=== PATIENT | female | born 1955 | race African-American/Black ===

== ENCOUNTER 2017-02-26 08:57 | Inpatient (IN) | payer MEDICAID ==
[2017-02-26] VITALS (7 sets, daily range): BP systolic 117–179; BP diastolic 62–81; PULSE 68–81; RESP 15–25; TEMP 98–99; O2SAT 96–100
[~2017-02-26] VITALS: Ht 167.6 cm; Wt 56.9 kg
[~2017-02-26 08:57] MED LIST: CALA180T PO; CEPH250 PO; CLOP75 PO; GABA300C3 PO; LISI-366 PO; SUPETAB30 PO; ULTR50TA PO; [UNRECOGNIZED DRUG - CODE] PO
--- NOTE | 2017-02-26 09:36 | PD ---
HPI Chief Complaint: Bite or Sting Time Seen by Provider: 09:27 Travel History International Travel<30 days: No Contact w/Intl Traveler<30days: No Traveled to known affect area: No History of Present Illness HPI 61-year-old female presents to the emergency department with 2 complaints. First complaint is left forearm "spider bite" 3 days. Reports pain radiating up and down her arm. Denies paresthesias, loss of sensation, decreased range of motion to the affected extremity. Says it's hard to move her arm. Second complaint is left-sided chest pain that has been constant since yesterday. Has history of chest pain. Says she's had a stress test in the past and has been over a year. Denies shortness of breath. Denies fever, vomiting. Is not up-to -date on her tetanus vaccination. Denies illicit drug use; although she admits to history of cocaine use. She says she did smoke a "blunt "last night to relieve her pain but doesn't know what was in it. Reports EtOH use daily. Reports tobacco use. Rates pain 8/10. Describes it as an ache. He is taking gabapentin for symptom management. Denies family history of cardiac events. No known allergies. Primary care provider is Dr. Lozoya. Has history of HIV and hepatitis C. Dr. Barry is HIV doctor. History of hypertension. Has no other medical complaints. No modifying factors or associated signs and symptoms. PFSH Past Medical History Anemia: Yes Arthritis: Yes Asthma: No Autoimmune Disease: Yes (HIV ) Blood Disorders: Yes (ANEMIA/HEP C/) Anxiety: Yes Depression: Yes Heart Rhythm Problems: Yes Cancer: No Cardiovascular Problems: Yes (HIGH BP) High Cholesterol: No Chemotherapy: No Chest Pain: Yes Congestive Heart Failure: No Cirrhosis: Yes COPD: No Cerebrovascular Accident: No Coronary Artery Disease: Yes Diabetes: No Diminished Hearing: No Endocrine: No Gastrointestinal Disorders: Yes (GERD) GERD: Yes Glaucoma: No Genitourinary: No Headaches: No Hepatitis: Yes (HEP C) Hiatal Hernia: No Hypertension: Yes Immune Disorder: No Kidney Stones: No Medical other: Yes (HIV POS.) Musculoskeletal: Yes (ARTHRITIS, FAILED RIGHT HIP REPL.) Neurologic: Yes (HEADACHES) Psychiatric: No Reproductive: No Respiratory: No Immunizations Current: Yes Migraines: No Myocardial Infarction: No Radiation Therapy: No Renal Failure: No Seizures: No Sickle Cell Disease: No Sleep Apnea: No Thyroid Disease: No Ulcer: No ?: Not Menopausal: Yes Para: 2 Dilation and Curettage (D&C): Yes Tubal Ligation: Yes Past Surgical History Abdominal Surgery: Yes (LAP. MARCELINO) AICD: No Appendectomy: No Arteriovenous Shunt: No Cardiac Surgery: No Cholecystectomy: Yes Ear Surgery: No Endocrine Surgery: No Eye Surgery: No Genitourinary Surgery: No Gynecologic Surgery: Yes (TUBAL LIGATION) Insulin Pump: No Joint Replacement: Yes (KRISTOFER. HIPS) Oral Surgery: Yes (DENTAL EXTRACT.) Pacemaker: No Thoracic Surgery: No Other Surgery: Yes Social History Alcohol Use: Yes Tobacco Use: Yes Substance Use: Yes (CRACK COCAINE ABUSE ) Allergies-Medications (Allergen,Severity, Reaction): Coded Allergies: *MDRO Multi-Drug Resistant Organism (Verified Allergy, Unknown, 02/26/17) MRSA Reported Meds & Prescriptions Reported Meds & Active Scripts Active Reported [Trimea] 1 Tab PO DAILY Gabapentin 600 Mg Tab 600 Mg PO TID Lisinopril 40 Mg Tab 40 Mg PO DAILY Multiple Vitamin 1 Tab 1 Tab PO DAILY Verapamil ER (Verapamil HCl) 180 Mg Tab 180 Mg PO DAILY Review of Systems Except as stated in HPI: all other systems reviewed are Neg Physical Exam Narrative GENERAL: Thin, black female patient, in no acute distress; afebrile, nontoxic- appearing SKIN: There is an indurated area in the left forearm which measures about 2 cm in diameter. It is fluctuant but there is pointing, but no drainage. There is a zone of inflammation around it but no lymphangitis. Left forearm erythematous and edematous. Left arm with full range of motion at the elbow, shoulder, wrist , hand. Left upper extremity is supple and non-tense 2+ radial pulses sensory intact. HEAD: Atraumatic. Normocephalic. EYES: Pupils equal and round. No scleral icterus. No injection or drainage. ENT: Mucosa pink and moist. NECK: Trachea midline. CHEST: Reproducible chest wall tenderness on palpation to sternal and left chest area; no crepitance or deformity. No retractions or use of accessory muscles. CARDIOVASCULAR: Regular rate and rhythm. No murmur appreciated. RESPIRATORY: No accessory muscle use. Clear to auscultation. Breath sounds equal bilaterally. No retractions or tachypnea. GASTROINTESTINAL: Abdomen soft, non-tender, nondistended. Hepatic and splenic margins not palpable. Bowel sounds are active 4 quadrants. MUSCULOSKELETAL: No obvious deformities. No clubbing. No cyanosis. No edema. NEUROLOGICAL: Awake and alert. Oriented 3. No obvious cranial nerve deficits. Motor grossly within normal limits. Normal speech. Moves all extremities. 5/5 strength to all extremities. PSYCHIATRIC: Appropriate mood and affect; insight and judgment normal. Data Data Last Documented VS Vital Signs Date Time Temp Pulse Resp B/P (MAP) Pulse Ox O2 Delivery O2 Flow Rate FiO2 02/26/17 09:46 99 Room Air 02/26/17 09:46 2.00 02/26/17 09:40 73 15 02/26/17 08:59 99.0 Orders Orders Electrocardiogram (02/26/17 09:36) Basic Metabolic Panel (Bmp) (02/26/17 09:36) Ckmb (Isoenzyme) Profile (02/26/17 09:36) Complete Blood Count With Diff (02/26/17 09:36) Magnesium (Mg) (02/26/17 09:36) Prothrombin Time / Inr (Pt) (02/26/17 09:36) Act Partial Throm Time (Ptt) (02/26/17 09:36) Troponin I (02/26/17 09:36) Chest, Single Ap (02/26/17 09:36) Ecg Monitoring (02/26/17 09:36) Iv Access Insert/Monitor (02/26/17 09:36) Oximetry (02/26/17 09:36) Oxygen Administration (02/26/17 09:36) Sodium Chloride 0.9% Flush (Ns Flush) (02/26/17 09:45) Blood Culture (02/26/17 09:36) Lactic Acid (02/26/17 09:36) Tetanus/Diphtheria Tox Adult (Tetanus/Di (02/26/17 09:45) Lidocaine 1% Inj (50 Ml) (Xylocaine 1% I (02/26/17 09:45) Drug Screen, Random Urine (02/26/17 09:45) Lidocaine Pf 1% Inj (Xylocaine-Mpf 1% In (02/26/17 09:48) CKMB (02/26/17 09:55) CKMB% (02/26/17 09:55) Admit Order (Ed Use Only) (02/26/17 11:41) Sulfamet-Trimeth Ds 800-160 Mg (Bactrim (02/26/17 11:45) Labs Laboratory Tests Test 02/26/17 09:55 02/26/17 10:00 Prothrombin Time 10.7 SEC Prothromb Time International Ratio 1.1 RATIO Activated Partial Thromboplast Time 28.9 SEC Blood Urea Nitrogen 15 MG/DL Creatinine 0.87 MG/DL Random Glucose 92 MG/DL Calcium Level 9.2 MG/DL Magnesium Level 2.2 MG/DL Sodium Level 138 MEQ/L Potassium Level 3.5 MEQ/L Chloride Level 104 MEQ/L Carbon Dioxide Level 29.6 MEQ/L Anion Gap 4 MEQ/L Estimat Glomerular Filtration Rate 80 ML/MIN Lactic Acid Level 0.8 mmol/L Total Creatine Kinase 117 U/L Creatine Kinase MB 1.1 NG/ML Troponin I LESS THAN 0.02 NG/ML White Blood Count 12.7 TH/MM3 Red Blood Count 5.16 MIL/MM3 Hemoglobin 14.2 GM/DL Hematocrit 42.7 % Mean Corpuscular Volume 82.7 FL Mean Corpuscular Hemoglobin 27.6 PG Mean Corpuscular Hemoglobin Concent 33.4 % Red Cell Distribution Width 14.1 % Platelet Count 228 TH/MM3 Mean Platelet Volume 8.2 FL Neutrophils (%) (Auto) 68.7 % Lymphocytes (%) (Auto) 21.4 % Monocytes (%) (Auto) 9.1 % Eosinophils (%) (Auto) 0.3 % Basophils (%) (Auto) 0.5 % Neutrophils # (Auto) 8.7 TH/MM3 Lymphocytes # (Auto) 2.7 TH/MM3 Monocytes # (Auto) 1.2 TH/MM3 Eosinophils # (Auto) 0.0 TH/MM3 Basophils # (Auto) 0.1 TH/MM3 CBC Comment DIFF FINAL Differential Comment MDM Medical Decision Making Medical Screen Exam Complete: Yes Emergency Medical Condition: Yes Medical Record Reviewed: Yes Differential Diagnosis ACS, IL, chest wall pain, abscess, sepsis Narrative Course 61-year-old female with chest pain and abscess to her left forearm. History of HIV and hepatitis C. See my procedure note for incision and drainage. CBC, BMP , coags, troponin, CK-MB, lactic acid, blood cultures, wound culture ordered. 0950: EKG with normal sinus rhythm; without ST elevation or depression. 1113: CBC unremarkable. BMP unremarkable. Lactic acid 0.8. Troponin less than 0.02. Coags unremarkable. Chest x-ray unremarkable. Patient admitted to the chest pain center for further treatment and evaluation. 1230: Patient examined by Dr. Blevins and he recommends admission for treatment abscess of the left arm. Call placed to [facility] for patient admission. 1308: I spoke with Dr. Guo and report given for patient admission. Procedures Procedure Narrative INCISION AND DRAINAGE OF ABSCESS: The area was prepped and was sterilely draped. A subcutaneous wheal of 1 % Xylocaine with a total number 1 mL was used to anesthetize the area properly. A number 11 scalpel was used to make a 0.5 -cm incision across the area of the abscess. The abscess was drained, complex loculations were broken down, and irrigated with normal saline. Cultures were obtained. Sterile dressing applied. Physician Communication Physician Communication [employer]; Dr. Guo [facility] Diagnosis Primary Impression: Chest pain Qualified Codes: R07.9 - Chest pain, unspecified Additional Impressions: Abscess of left forearm Cellulitis of left arm Admitting Information Admitting Physician Requests: Observation Coleen Carpenter Feb 26, 2017 09:36
[2017-02-26] MEDS ORDERED: LISI40TA PO (09:43)
[2017-02-26] MEDS ORDERED: VERA1TAB10 PO (09:43)
[2017-02-26] MEDS ORDERED: MULTTAB67 PO (09:43)
[2017-02-26] MEDS ORDERED: GABA600T PO (09:43)
[2017-02-26] MEDS ORDERED: [UNRECOGNIZED DRUG - OTHER] PO (09:44)
[2017-02-26] MEDS ORDERED: TETANUS/DIPHTHERIA TOXOID ADULT 0.5 ML VIAL IM ONE (09:45)
[2017-02-26] MEDS ORDERED: LIDOCAINE HCL 1% 50 ML VIAL INFIL ONE (09:45)
[2017-02-26] MEDS ORDERED: SODIUM CHLORIDE 0.9% FLUSH 10 ML FLUSH IVF PRN (09:45)
[2017-02-26] MEDS ORDERED: LIDOCAINE HCL 1% PF 30 ML VIAL ONE (09:48)
--- NOTE | 2017-02-26 10:22 | RADRPT ---
EXAM DATE/TIME: 02/26/2017 09:48 [facility] COMPARISON: CHEST SINGLE AP, October 31, 2014, 12:59. INDICATIONS : Chest pain due to from a possible spider bite. MEDICAL HISTORY : HIV. Hepatitis C. Hypertension. MRSA. SURGICAL HISTORY : Cholecystectomy. Tubal ligation. Total hip replacement, bilat. ENCOUNTER: Initial ACUITY: 1 day PAIN SCORE: 4/10 LOCATION: Bilateral chest FINDINGS: A single view of the chest demonstrates the lungs to be symmetrically aerated without evidence of mas s, infiltrate or effusion. The cardiomediastinal contours are unremarkable. Osseous structures are intact. CONCLUSION: 1. No acute cardiopulmonary disease. Tony Claire MD on February 26, 2017 at 10:20 Board Certified Radiologist. This report was verified electronically.
[2017-02-26 10:24] LABS: AUTOMATED NEUTROPHIL # 8.7 TH/MM3 (1.8-7.7); BASOPHIL # 0.1 TH/MM3 (0-0.2); BASOPHIL % 0.5 % (0.0-2.0); EOSINOPHIL % 0.3 % (0.0-4.0); HEMATOCRIT 42.7 % (35.0-46.0); HEMO FLAGS DIFF FINAL; LYMPH % 21.4 % (9.0-44.0); LYMPHOCYTE # 2.7 TH/MM3 (1.0-4.8); MEAN CELL VOLUME 82.7 FL (80.0-100.0); MEAN CORPUSCULAR HEMOGLOBIN 27.6 PG (27.0-34.0); MEAN CORPUSCULAR HGB CONC 33.4 % (32.0-36.0); MONO % 9.1 % (0.0-8.0); NEUT % 68.7 % (16.0-70.0); PLATELET COUNT 228 TH/MM3 (150-450); RED BLOOD COUNT 5.16 MIL/MM3 (4.00-5.30); RED CELL DISTRIBUTION WIDTH 14.1 % (11.6-17.2); WHITE BLOOD COUNT 12.7 TH/MM3 (4.0-11.0)
[2017-02-26 10:34] LABS: APTT (PATIENT) 28.9 SEC (24.3-30.1); INTERNATIONAL NORMALIZED RATIO 1.1 RATIO; PROTHROMBIN TIME - PATIENT 10.7 SEC (9.8-11.6)
[2017-02-26 10:41] LABS: ANION GAP 4 MEQ/L (5-15); BICARBONATE 29.6 MEQ/L (21.0-32.0); BLOOD UREA NITROGEN 15 MG/DL (7-18); CHLORIDE 104 MEQ/L (98-107); GLOMERULAR FILTRATION RATE 80 ML/MIN (>89); MAGNESIUM 2.2 MG/DL (1.5-2.5); POTASSIUM 3.5 MEQ/L (3.5-5.1); SODIUM (NA) 138 MEQ/L (136-145)
[2017-02-26 10:45] LABS: CREATINE KINASE 117 U/L (26-192)
[2017-02-26 10:57] LABS: CKMB 1.1 NG/ML (0.5-3.6)
[2017-02-26] MEDS: SULFAMETHOXAZOLE-TRIMETHOPRIM DS 800-160 MG TAB PO SCH ×2 (11:47→21:09)
[2017-02-26] MEDS ORDERED: KETOROLAC TROMETHAMINE 30 MG/ML (IVP) VIAL IV PUSH ONE (12:00)
[2017-02-26] MEDS ORDERED: NITROGLYCERIN 0.4 MG SL 25 TABS/BTL SL PRN (12:15)
[2017-02-26] MEDS ORDERED: ONDANSETRON HCL 4 MG/2 ML VIAL IV PUSH PRN (12:15)
[2017-02-26] MEDS ORDERED: ACETAMINOPHEN 500 MG CPLT PO PRN (12:15)
--- NOTE | 2017-02-26 12:34 | PD ---
Data Data Last Documented VS Vital Signs Date Time Temp Pulse Resp B/P (MAP) Pulse Ox O2 Delivery O2 Flow Rate FiO2 02/26/17 09:46 99 Room Air 02/26/17 09:46 2.00 02/26/17 09:40 73 15 02/26/17 08:59 99.0 Orders Orders Electrocardiogram (02/26/17 09:36) Basic Metabolic Panel (Bmp) (02/26/17 09:36) Ckmb (Isoenzyme) Profile (02/26/17 09:36) Complete Blood Count With Diff (02/26/17 09:36) Magnesium (Mg) (02/26/17 09:36) Prothrombin Time / Inr (Pt) (02/26/17 09:36) Act Partial Throm Time (Ptt) (02/26/17 09:36) Troponin I (02/26/17 09:36) Chest, Single Ap (02/26/17 09:36) Ecg Monitoring (02/26/17 09:36) Iv Access Insert/Monitor (02/26/17 09:36) Oximetry (02/26/17 09:36) Oxygen Administration (02/26/17 09:36) Sodium Chloride 0.9% Flush (Ns Flush) (02/26/17 09:45) Blood Culture (02/26/17 09:36) Lactic Acid (02/26/17 09:36) Tetanus/Diphtheria Tox Adult (Tetanus/Di (02/26/17 09:45) Lidocaine 1% Inj (50 Ml) (Xylocaine 1% I (02/26/17 09:45) Drug Screen, Random Urine (02/26/17 09:45) Lidocaine Pf 1% Inj (Xylocaine-Mpf 1% In (02/26/17 09:48) CKMB (02/26/17 09:55) CKMB% (02/26/17 09:55) Admit Order (Ed Use Only) (02/26/17 11:41) Sulfamet-Trimeth Ds 800-160 Mg (Bactrim (02/26/17 11:45) Labs Laboratory Tests Test 02/26/17 09:55 02/26/17 10:00 Prothrombin Time 10.7 SEC Prothromb Time International Ratio 1.1 RATIO Activated Partial Thromboplast Time 28.9 SEC Blood Urea Nitrogen 15 MG/DL Creatinine 0.87 MG/DL Random Glucose 92 MG/DL Calcium Level 9.2 MG/DL Magnesium Level 2.2 MG/DL Sodium Level 138 MEQ/L Potassium Level 3.5 MEQ/L Chloride Level 104 MEQ/L Carbon Dioxide Level 29.6 MEQ/L Anion Gap 4 MEQ/L Estimat Glomerular Filtration Rate 80 ML/MIN Lactic Acid Level 0.8 mmol/L Total Creatine Kinase 117 U/L Creatine Kinase MB 1.1 NG/ML Troponin I LESS THAN 0.02 NG/ML White Blood Count 12.7 TH/MM3 Red Blood Count 5.16 MIL/MM3 Hemoglobin 14.2 GM/DL Hematocrit 42.7 % Mean Corpuscular Volume 82.7 FL Mean Corpuscular Hemoglobin 27.6 PG Mean Corpuscular Hemoglobin Concent 33.4 % Red Cell Distribution Width 14.1 % Platelet Count 228 TH/MM3 Mean Platelet Volume 8.2 FL Neutrophils (%) (Auto) 68.7 % Lymphocytes (%) (Auto) 21.4 % Monocytes (%) (Auto) 9.1 % Eosinophils (%) (Auto) 0.3 % Basophils (%) (Auto) 0.5 % Neutrophils # (Auto) 8.7 TH/MM3 Lymphocytes # (Auto) 2.7 TH/MM3 Monocytes # (Auto) 1.2 TH/MM3 Eosinophils # (Auto) 0.0 TH/MM3 Basophils # (Auto) 0.1 TH/MM3 CBC Comment DIFF FINAL Differential Comment MDM Supervised Visit with ELIZABETH: Yes Narrative Course I, Dr. Rutledge, have reviewed the advance practice practitioner's documentation and am in agreement, met with the patient face to face, made the diagnosis, and the medical decision making was done by me. *My assessment and Findings: Patient seen and examined by me in addition to Coleen Betsylashay RICCI, patient immunocompromise, does have some significant swelling to the left forearm, seen by cardiology who agrees patient's symptoms are highly atypical. Given the swelling of her left forearm and her immunocompromise state and think she needs to have a day or 2 of IV antibiotics in the hospital until clinically turning the corner. She is not septic at this time. IV antibiotic for given in the ER. Diagnosis Primary Impression: Chest pain Qualified Codes: R07.9 - Chest pain, unspecified Additional Impression: Abscess of left forearm Admitting Information Admitting Physician Requests: Observation Condition: Stable João Rutledge MD Feb 26, 2017 12:34
[2017-02-26] MEDS ORDERED: MORPHINE SULFATE 4 MG/ML INJ IV PUSH ONE (12:45)
[2017-02-26] MEDS ORDERED: VANCOMYCIN INJ 1,000 MG in SODIUM CHLOR 0.9% 250 ML INJ 250 ML IV ONE (12:45)
[2017-02-26] MEDS ORDERED: ACETAMINOPHEN 325 MG TAB PO PRN (13:45)
[2017-02-26] MEDS ORDERED: Vancomycin Consult Pharmacy 1 EA OTHER SCH (13:45)
[2017-02-26] MEDS ORDERED: NALOXONE HCL 0.4 MG/ML AMP IV PUSH PRN (13:45)
[2017-02-26] MEDS ORDERED: MAGNESIUM HYDROXIDE SUSP 30 ML CUP PO PRN (13:45)
[2017-02-26] MEDS ORDERED: ONDANSETRON HCL 4 MG/2 ML VIAL IVP PRN (13:45)
[2017-02-26] MEDS ORDERED: SODIUM CHLORIDE 0.9% FLUSH 10 ML FLUSH IV FLUSH PRN (13:45)
--- NOTE | 2017-02-26 13:50 | HHI.HP ---
HPI Service [facility] Primary Care Physician Luther Lozoya D.O. Admission Diagnosis chest pain. left forearm abscess Diagnoses: Chief Complaint: Left arm pain and chest pain Travel History International Travel<30 Days: No Contact w/Intl Traveler <30 Da: No Traveled to Known Affected Are: No History of Present Illness This is a 61-year-old female who has HIV unknown current CD4 count, hypertension , history of hepatitis, and cracked cocaine abuse who presented with left arm cellulitis and chest pain. Patient stated that she started to have left arm pain 4 days ago. She stated that it progressed quickly. She denies any drug use but from the medical records and stated that patient has a history of crack cocaine use. Patient stated pain was so severe so she went to emergency department. Patient also complained of chest pain that started yesterday. Chest pain occurred at rest, nonradiating, nothing made it better or worse, constant, and 10 out of 10. She denies any nausea or vomiting or diaphoresis with the chest pain. Patient denies any trauma or lifting recently. Denies any fevers or chills. Patient sees infectious disease Dr. Doran. She stated that she does not know her CD4 count. She stated that she is on medication for HIV but she could not tell me the name. I asked patient if someone can bring in the medication. All other review of system reviewed and negative. Past Family Social History Past Medical History HIV Hypertension History of hepatitis C GERD Anemia Questionable history of crack cocaine abuse Past Surgical History Tubal ligation Cholecystectomy Left toe biopsy Bilateral hip replacement Reported Medications Reported Meds & Active Scripts Active Reported [Trimea] 1 Tab PO DAILY Gabapentin 600 Mg Tab 600 Mg PO TID Lisinopril 40 Mg Tab 40 Mg PO DAILY Multiple Vitamin 1 Tab 1 Tab PO DAILY Verapamil ER (Verapamil HCl) 180 Mg Tab 180 Mg PO DAILY Allergies: Coded Allergies: *MDRO Multi-Drug Resistant Organism (Verified Allergy, Unknown, 02/26/17) MRSA Active Ordered Medications Current Medications Sodium Chloride (NS Flush) 2 ml UNSCH PRN IVF FLUSH AFTER USING IV ACCESS; Start 02/26/17 at 09:45 Tetanus/ Diphtheria Toxoids (Tetanus/ Diphtheria Tox Adult) 0.5 ml ONCE ONCE IM Last administered on 02/26/17 09:50; Start 02/26/17 at 09:45; Stop 02/26/17 at 09:46; Status DC Lidocaine HCl (Xylocaine 1% Inj (50 ml)) 10 ml ONCE ONCE INFIL ; Start at 09:45; Stop 02/26/17 at 09:46; Status DC Lidocaine HCl (Xylocaine-Mpf 1% Inj) 30 ml STK-MED ONCE .ROUTE Last administered on 02/26/17 11:49; Start 02/26/17 at 09:48; Stop 02/26/17 at 09:49 ; Status DC Trimethoprim/ Sulfamethoxazole (Bactrim Ds 800-160 Mg) 1 tab Q12HR PO Last administered on 02/26/17 11:47; Start 02/26/17 at 11:45; Stop 03/08/17 at 11: 44 Ketorolac Tromethamine (Toradol Inj) 30 mg ONCE ONCE IV PUSH Last administered on 02/26/17 13:16; Start 02/26/17 at 12:00; Stop 02/26/17 at 12:01 ; Status DC Sodium Chloride (NS Flush) 2 ml BID IV FLUSH ; Start 02/26/17 at 21:00 Acetaminophen (Tylenol) 500 mg Q4H PRN PO HEADACHE; Start 02/26/17 at 12:15 Ondansetron HCl (Zofran Inj) 4 mg Q6H PRN IV PUSH NAUSEA; Start 02/26/17 at 12: 15; Stop 02/26/17 at 12:38; Status DC Nitroglycerin (Nitrostat Sl) 0.4 mg Q5M PRN SL CHEST PAIN; Start 02/26/17 at 12 :15; Stop 02/26/17 at 12:38; Status DC Aspirin (Aspirin) 325 mg DAILY PO ; Start 02/27/17 at 09:00; Stop 02/27/17 at 09 :00; Status DC Vancomycin HCl 1000 mg/Sodium Chloride 250 ml @ 250 mls/hr ONCE ONCE IV Last administered on 02/26/17 13:16; Start 02/26/17 at 12:45; Stop 02/26/17 at 14:04 ; Status DC Morphine Sulfate (Morphine Inj) 4 mg ONCE ONCE IV PUSH Last administered on t 13:17; Start 02/26/17 at 12:45; Stop 02/26/17 at 12:46; Status DC Sodium Chloride 1,000 ml @ 75 mls/hr [id number] IV ; Start 02/26/17 at 14:00 Sodium Chloride (NS Flush) 2 ml UNSCH PRN IV FLUSH FLUSH AFTER USING IV ACCESS ; Start 02/26/17 at 13:45 Sodium Chloride (NS Flush) 2 ml BID IV FLUSH ; Start 02/26/17 at 21:00 Acetaminophen (Tylenol) 650 mg Q4H PRN PO TEMP > 100.4; Start 02/26/17 at 13:45 Ondansetron HCl (Zofran Inj) 4 mg Q6H PRN IVP NAUSEA OR VOMITING; Start at 13:45 Naloxone HCl (Narcan Inj) 0.4 mg UNSCH PRN IV PUSH SEE LABEL COMMENTS; Start 02/26/17 at 13:45 Magnesium Hydroxide (Milk Of Giovanni Shah) 30 ml Q12H PRN PO Mild constipation ; Start 02/26/17 at 13:45 Pharmacy Profile Note 0 ml @ 0 mls/hr UNSCH OTHER ; Start 02/26/17 at 13:45 Acetaminophen/ Hydrocodone Bitart ([place] 5-325 Mg) 1 tab Q4H PRN PO pain 1-7; Start 02/26/17 at 14:00 Acetaminophen/ Hydrocodone Bitart ([place] 5-325 Mg) 2 tab Q4H PRN PO pain 8-10 ; Start 02/26/17 at 14:00; Status UNV Family History Patient's mother had a history of renal failure, diabetes, cardiovascular disease. Social History She lives alone by herself. Drinks beer once in a while. Smokes 2-3 cigarettes per day since the age of 18. She denies any illicit drug use but from the medical records stated that patient has a history of crack cocaine abuse. Physical Exam Vital Signs Vital Signs Date Time Temp Pulse Resp B/P (MAP) Pulse Ox O2 Delivery O2 Flow Rate FiO2 02/26/17 13:31 76 22 179/81 (113) 96 Nasal Cannula 2.00 02/26/17 09:46 99 Room Air 02/26/17 09:46 99 Nasal Cannula 2.00 12/7/17 09:40 73 15 161/78 (105) 99 Room Air 02/26/17 08:59 99.0 81 16 164/76 (105) 98 Room Air Physical Exam GENERAL: This is thin female who looks agitated and is scratching her right arm but in no acute distress. SKIN: Left arm status post I&D done today wound dry clean and intact. Cellulitis on the lateral and anterior part of the left forearm. Negative for any warmth positive for mild hardening around the wound. HEAD: Atraumatic. Normocephalic. No temporal or scalp tenderness. EYES: Pupils equal round and reactive. Extraocular motions intact. No scleral icterus. No injection or drainage. ENT: Nose without bleeding, purulent drainage or septal hematoma. Throat without erythema, tonsillar hypertrophy or exudate. Uvula midline. Airway patent. NECK: Trachea midline. No JVD or lymphadenopathy. Supple, nontender, no meningeal signs. CARDIOVASCULAR: Regular rate and rhythm without murmurs, gallops, or rubs. Tenderness to palpation on the left side of the chest reproducing the same type of chest pain patient has. RESPIRATORY: Clear to auscultation. Breath sounds equal bilaterally. No wheezes , rales, or rhonchi. GASTROINTESTINAL: Abdomen soft, non-tender, nondistended. No hepato-splenomegaly , or palpable masses. No guarding. MUSCULOSKELETAL: Extremities without clubbing, cyanosis, or edema. No joint tenderness, effusion, or edema noted. No calf tenderness. Negative Homans sign bilaterally. NEUROLOGICAL: Awake and alert. Cranial nerves II through XII intact. Motor and sensory grossly within normal limits. Five out of 5 muscle strength in all muscle groups. Normal speech. Laboratory Laboratory Tests Test 02/26/17 09:55 02/26/17 10:00 Prothrombin Time 10.7 Prothromb Time International Ratio 1.1 Activated Partial Thromboplast Time 28.9 Blood Urea Nitrogen 15 Creatinine 0.87 Random Glucose 92 Calcium Level 9.2 Magnesium Level 2.2 Sodium Level 138 Potassium Level 3.5 Chloride Level 104 Carbon Dioxide Level 29.6 Anion Gap 4 Estimat Glomerular Filtration Rate 80 Lactic Acid Level 0.8 Total Creatine Kinase 117 Creatine Kinase MB 1.1 Troponin I LESS THAN 0.02 White Blood Count 12.7 Red Blood Count 5.16 Hemoglobin 14.2 Hematocrit 42.7 Mean Corpuscular Volume 82.7 Mean Corpuscular Hemoglobin 27.6 Mean Corpuscular Hemoglobin Concent 33.4 Red Cell Distribution Width 14.1 Platelet Count 228 Mean Platelet Volume 8.2 Neutrophils (%) (Auto) 68.7 Lymphocytes (%) (Auto) 21.4 Monocytes (%) (Auto) 9.1 Eosinophils (%) (Auto) 0.3 Basophils (%) (Auto) 0.5 Neutrophils # (Auto) 8.7 Lymphocytes # (Auto) 2.7 Monocytes # (Auto) 1.2 Eosinophils # (Auto) 0.0 Basophils # (Auto) 0.1 CBC Comment DIFF FINAL Differential Comment Date/Time Source Procedure Growth Status 02/26/17 09:55 Blood Peripheral Aerobic Blood Culture Pending Received 02/26/17 09:55 Blood Peripheral Anaerobic Blood Culture Pending Received Result Diagram: 02/26/17 1000 02/26/17 0955 Imaging Last Impressions Chest X-Ray 02/26/17 0936 Signed Impressions: Service Date/Time: February 09:48 - CONCLUSION: 1. No acute cardiopulmonary disease. Tony Claire MD Course I&D in the ER on 02/26/2017 Caprini VTE Risk Assessment Caprini VTE Risk Assessment: Mod/High Risk (score >= 2) Caprini Risk Assessment Model Point Value = 1 Point Value = 2 Point Value = 3 Point Value = 5 Age 41-60 Minor surgery BMI > 25 kg/m2 Swollen legs Varicose veins or History of unexplained or recurrent spontaneous Oral contraceptives or hormone replacement Sepsis (< 1 month) Serious lung disease, including pneumonia (< 1 month) Abnormal pulmonary function Acute myocardial infarction Congestive heart failure (< 1 month) History of inflammatory bowel disease Medical patient at bed rest Age 61-74 Arthroscopic surgery Major open surgery (> 45 min) Laparoscopic surgery (> 45 min) Malignancy Confined to bed (> 72 hours) Immobilizing plaster cast Central venous access Age >= 75 History of VTE Family history of VTE Factor V Leiden Prothrombin [id number] Lupus anticoagulant Anticardiolipin antibodies Elevated serum homocysteine Heparin-induced thrombocytopenia Other congenital or acquired thrombophilia Stroke (< 1 month) Elective arthroplasty Hip, pelvis, or leg fracture Acute spinal cord injury (< 1 month) Prophylaxis Regimen Total Risk Factor Score Risk Level Prophylaxis Regimen 0-1 Low Early ambulation 2 Moderate Order ONE of the following: *Sequential Compression Device (SCD) *Heparin 5000 units SQ BID 3-4 Higher Order ONE of the following medications: *Heparin 5000 units SQ TID *Enoxaparin/Lovenox 40 mg SQ daily (WT < 150 kg, CrCl > 30 mL/min) *Enoxaparin/Lovenox 30 mg SQ daily (WT < 150 kg, CrCl > 10-29 mL/min) *Enoxaparin/Lovenox 30 mg SQ BID (WT < 150 kg, CrCl > 30 mL/min) AND/OR *Sequential Compression Device (SCD) 5 or more Highest Order ONE of the following medications: *Heparin 5000 units SQ TID (Preferred with Epidurals) *Enoxaparin/Lovenox 40 mg SQ daily (WT < 150 kg, CrCl > 30 mL/min) *Enoxaparin/Lovenox 30 mg SQ daily (WT < 150 kg, CrCl > 10-29 mL/min) *Enoxaparin/Lovenox 30 mg SQ BID (WT < 150 kg, CrCl > 30 mL/min) AND *Sequential Compression Device (SCD) Assessment and Plan Assessment and Plan 61-year-old female history of HIV who presented with left arm abscess/ cellulitis and chest pain Left arm abscess/cellulitis -Patient does not have a white count or fevers but is immunocompromised. Will get a CRP. -Status post I&D in emergency department on 02/26/2017. -Patient given a dose of vancomycin emergency department. Will continue the vancomycin. -Due to patient's history with multidrug-resistant organism in having HIV will consult infectious disease to assist with management. -Will get wound cultures. Pending blood cultures. -Continue to monitor clinically. Atypical chest pain -Pain is constant and reproducible. Most likely musculoskeletal. -Patient was evaluated by chest pain center in which they stated this is very unlikely cardiac in nature. -Troponin and EKG reviewed and negative. will continue to trend troponin. -Pain management with Toradol. Documented history of crack cocaine abuse -Patient denies any illicit drug use including cocaine. -Patient does seem like she is withdrawing from crack cocaine or this may be due to pain. -Urine drug screen was ordered. Pending urine drug screen. HIV/hepatitis C/GERD/anemia/hypertension -Will get a CD4 count. -Continue home medication. -Patient asked if she can have someone bring her medication. Otherwise will have nurse call patient's pharmacist to obtain her HIV medication. DVT prophylaxis -Lovenox. Discussed Condition With patient and ED nurse Physician Certification 2 Midnight Certification Type: Admission for Inpatient Services Order for Inpatient Services The services are ordered in accordance with Medicare regulations or non- Medicare payer requirements, as applicable. In the case of services not specified as inpatient-only, they are appropriately provided as inpatient services in accordance with the 2-midnight benchmark. Estimated LOS (days): 3 3 days is the estimated time the patient will need to remain in the hospital, assuming treatment plan goals are met and no additional complications. Post-Hospital Plan: Home Sasha Guo MD Feb 26, 2017 13:50
[2017-02-26] MEDS ORDERED: ACETAMINOPHEN/HYDROcodone 325 MG/5 MG TAB PO PRN (14:00)
[2017-02-26] MEDS: ENOXAPARIN SODIUM 40 MG/0.4 ML SYRINGE SQ SCH (16:01)
[2017-02-26] MEDS: SODIUM CHLOR 0.45% 1000 ML INJ 1,000 ML IV SCH (16:01)
[2017-02-26] MEDS: LISINOPRIL 20 MG TAB PO SCH (16:01)
[2017-02-26] MEDS: ACETAMINOPHEN/HYDROcodone 325 MG/5 MG TAB PO PRN ×2 (16:05→21:10)
[2017-02-26] MEDS: VERAPAMIL HCL 180 MG SUSTAINED RELEASE TAB PO SCH (16:07)
[2017-02-26] MEDS: MULTIVITAMIN TAB PO SCH (16:07)
--- NOTE | 2017-02-26 16:08 | EKG ---
Date Performed: 02/26/2017 Time Performed: 09:46:24 PTAGE: 61 years EKG: Sinus rhythm NORMAL ECG Since PREVIOUS TRACING , no significant change noted PREVIOUS TRACIN05/20/2015 20.18.15 DOCTOR: Guillermo Mehta Interpretating Date/Time 02/26/2017 16:06:13
--- NOTE | 2017-02-26 17:02 | MB ---
cc: AGNES HERRON MD DATE OF CONSULTATION: 02/26/[address] Guo. REASON FOR CONSULTATION Abscess and cellulitis of the left arm. HIV disease diagnosed in 2002. HISTORY OF PRESENT ILLNESS This is a 61-year-old black female who presented to the emergency department with pain and swelling of her left forearm. The patient states that she was awakened from sleep because of the pain and she could not sleep because it was intense in her left forearm. She states that she has had some swelling of the left forearm for approximately 4 days and then she developed severe pain and presented to emergency department for evaluation. The patient said she may have had a spider bite. She lives in a group female home. She also noted that she started getting some chest pain yesterday. The pain at the arm was intense a 8/10. She denies fever, chills, nausea or vomiting. The patient has HIV disease and is followed by Dr. Barry as outpatient. She denies fever, chills, nausea or vomiting. The culture has been taken from the left arm and the result is not yet available. This was from the wound area being lanced and the abscess was drained. The patient has no other complaints. She is afebrile. PAST MEDICAL HISTORY 1. HIV disease 2. Hepatitis C 3. Hypertension 4. Gastroesophageal reflux 5. Anemia 6. Arthritis 7. Anxiety 8. Depression 9. Cholecystectomy 10. Bilateral hip replacement surgery 11. Tubal ligation. 12. History of crack cocaine and cocaine abuse. ALLERGIES NO KNOWN DRUG ALLERGIES. MEDICATIONS 1. Vancomycin, 2. Triumeq. 3. Neurontin 4. Verapamil 5. Lovenox. 6. [place] 5 p.r.n. 7. Bactrim 1 tablet p.o. q.12 h SOCIAL HISTORY Positive tobacco. Positive alcohol. Positive crack cocaine. FAMILY HISTORY Noncontributory. REVIEW OF SYSTEMS Review of review of systems negative on 10-point review except for pain in the left arm. PHYSICAL EXAMINATION: IN GENERAL: Physical exam this is a cachectic pleasant female in no acute distress. VITAL SIGNS: Temperature 99 Degrees, BP 136/62, respirations 24, heart rate 68. HEAD, EYES, EARS, NOSE, AND THROAT: Head atraumatic. Extraocular movements grossly intact. Pupils reactive to light. No icterus. Oropharynx moist mucosa. No lesions. No thrush. The patient is edentulous and wears partial upper denture. NECK: Supple. No adenopathy. LUNGS: Clear to auscultation. HEART: Regular S1, S2, no audible murmurs, rubs or gallops. ABDOMEN: Bowel sounds present, soft, nontender. RECTUM: The rectal was not performed. EXTREMITIES: No clubbing, cyanosis or edema. The left upper extremity has an area of swelling at the volar aspect of the arm near the elbow. This is status post lancing procedure. Mild erythema. No blisters. SKIN: Has no diffuse rash. NEUROLOGIC: Nonfocal PSYCHIATRIC: The patient calm and cooperative. LABORATORY DATA WBC 12.7, platelets 228, hemoglobin 14.2, creatinine 0.87, BUN 15, sodium 138. Blood culture pending. Wound culture pending. IMPRESSION Abscess of the left forearm with cellulitis. HIV disease, stable on medication. RECOMMENDATIONS 1. Continue vancomycin currently being given. 2. Monitor wound culture for antibiotic adjustment. 3. Monitor wound culture. Thank you this consultation. Further recommendations will be given upon followup of the cultures. Agnes Herron MD FD/mami /3:44 PM /4:46 PM
[2017-02-26] MEDS: GABAPENTIN 300 MG CAP PO SCH (17:10)
[2017-02-26] MEDS: KETOROLAC TROMETHAMINE 30 MG/ML (IVP) VIAL IV PUSH SCH (17:11)
[2017-02-26] MEDS: SODIUM CHLORIDE 0.9% FLUSH 10 ML FLUSH IV FLUSH SCH ×2 (21:00→21:09)
[2017-02-26] MEDS ORDERED: VANCOMYCIN INJ 1,000 MG in SODIUM CHLOR 0.9% 250 ML INJ 250 ML IV SCH (23:00)
[2017-02-27] VITALS (14 sets, daily range): BP systolic 84–120; BP diastolic 43–61; PULSE 61–83; RESP 16–20; TEMP 97.6–100.3; O2SAT 94–97
[2017-02-27] MEDS: KETOROLAC TROMETHAMINE 30 MG/ML (IVP) VIAL IV PUSH SCH ×5 (00:16→23:21)
[2017-02-27 01:56] LABS: ANION GAP 6 MEQ/L (5-15); BICARBONATE 26.8 MEQ/L (21.0-32.0); BLOOD UREA NITROGEN 11 MG/DL (7-18); CHLORIDE 101 MEQ/L (98-107); GLOMERULAR FILTRATION RATE 85 ML/MIN (>89); POTASSIUM 3.9 MEQ/L (3.5-5.1); SODIUM (NA) 134 MEQ/L (136-145)
[2017-02-27] MEDS: SODIUM CHLOR 0.45% 1000 ML INJ 1,000 ML IV SCH ×2 (04:18→16:38)
[2017-02-27] MEDS: ACETAMINOPHEN/HYDROcodone 325 MG/5 MG TAB PO PRN ×2 (04:18→08:12)
[2017-02-27] MEDS: SODIUM CHLORIDE 0.9% FLUSH 10 ML FLUSH IV FLUSH SCH ×3 (07:48→21:00)
[2017-02-27] MEDS: SULFAMETHOXAZOLE-TRIMETHOPRIM DS 800-160 MG TAB PO SCH ×2 (08:09→23:22)
[2017-02-27] MEDS: DOLUTEGRAVIR SODIUM 50 MG TAB PO SCH (08:09)
[2017-02-27] MEDS: ABACAVIR SULFATE 300 MG TAB PO SCH (08:10)
[2017-02-27] MEDS: MULTIVITAMIN TAB PO SCH (08:10)
[2017-02-27] MEDS: GABAPENTIN 300 MG CAP PO SCH ×3 (08:10→17:34)
[2017-02-27] MEDS: LISINOPRIL 20 MG TAB PO SCH (08:11)
[2017-02-27] MEDS: VERAPAMIL HCL 180 MG SUSTAINED RELEASE TAB PO SCH (08:11)
[2017-02-27 08:29] LABS: MEAN CELL VOLUME 83.3 FL (80.0-100.0); MEAN CORPUSCULAR HEMOGLOBIN 27.7 PG (27.0-34.0); MEAN CORPUSCULAR HGB CONC 33.2 % (32.0-36.0); PLATELET COUNT 191 TH/MM3 (150-450); RED BLOOD COUNT 4.56 MIL/MM3 (4.00-5.30); RED CELL DISTRIBUTION WIDTH 14.1 % (11.6-17.2); REVIEW FLAG FINAL; WHITE BLOOD COUNT 13.3 TH/MM3 (4.0-11.0)
[2017-02-27] MEDS ORDERED: [UNRECOGNIZED DRUG - OTHER] PO SCH (09:00)
[2017-02-27] MEDS ORDERED: ASPIRIN 325 MG TAB PO SCH (09:00)
[2017-02-27] MEDS: VANCOMYCIN 1,000 MG/NS 250 ML IV SCH ×2 (12:15)
--- NOTE | 2017-02-27 13:43 | EKG ---
Date Performed: 02/26/2017 Time Performed: 13:33:38 PTAGE: 61 years EKG: Sinus rhythm WITH FIRST DEGREE AV BLOCK ABNORMAL ECG PREVIOUS TRACING : 02/26/2017 09.46 DOCTOR: Carlito Blevins Interpretating Date/Time 02/27/2017 13:42:37
[2017-02-27] MEDS ORDERED: PIPERACIL-TAZO 4.5 GM PREMIX 100 ML IV SCH (14:00)
--- NOTE | 2017-02-27 15:51 | HHI.IDPN ---
Note Infectious Disease Note Patient notes pain in the left arm. Afebrile. PAST MEDICAL HISTORY 1. HIV disease 2. Hepatitis C 3. Hypertension 4. Gastroesophageal reflux 5. Anemia 6. Arthritis 7. Anxiety 8. Depression 9. Cholecystectomy 10. Bilateral hip replacement surgery 11. Tubal ligation. 12. History of crack cocaine and cocaine abuse. ALLERGIES NO KNOWN DRUG ALLERGIES. ANTIBIOTICS Vancomycin, BACTRIM Current Medications Medications (Trade) Dose Ordered Sig/Jessica Route PRN Reason Start Time Stop Time Status Last Admin Dose Admin Sodium Chloride (NS Flush) 2 ml UNSCH PRN IVF FLUSH AFTER USING IV ACCESS 02/26/17 09:45 Trimethoprim/ Sulfamethoxazole (Bactrim Ds 800-160 Mg) 1 tab Q12HR PO 02/26/17 11:45 03/08/17 11:44 02/27/17 08:09 Sodium Chloride (NS Flush) 2 ml BID IV FLUSH 02/26/17 21:00 02/27/17 07:48 Acetaminophen (Tylenol) 500 mg Q4H PRN PO HEADACHE 02/26/17 12:15 Sodium Chloride 1,000 ml @ 75 mls/hr [id number] IV 02/26/17 14:00 02/27/17 04:18 Sodium Chloride (NS Flush) 2 ml UNSCH PRN IV FLUSH FLUSH AFTER USING IV ACCESS 02/26/17 13:45 Sodium Chloride (NS Flush) 2 ml BID IV FLUSH 02/26/17 21:00 Acetaminophen (Tylenol) 650 mg Q4H PRN PO TEMP > 100.4 02/26/17 13:45 Ondansetron HCl (Zofran Inj) 4 mg Q6H PRN IVP NAUSEA OR VOMITING 02/26/17 13:45 Naloxone HCl (Narcan Inj) 0.4 mg UNSCH PRN IV PUSH SEE LABEL COMMENTS 02/26/17 13:45 Magnesium Hydroxide (Milk Of Magnesia Liq) 30 ml Q12H PRN PO Mild constipation 02/26/17 13:45 Pharmacy Profile Note 0 ml @ 0 mls/hr UNSCH OTHER 02/26/17 13:45 Acetaminophen/ Hydrocodone Bitart ([place] 5-325 Mg) 1 tab Q4H PRN PO pain 1-7 02/26/17 14:00 Acetaminophen/ Hydrocodone Bitart ([place] 5-325 Mg) 2 tab Q4H PRN PO pain 8-10 02/26/17 14:00 02/27/17 08:12 Gabapentin (Neurontin) 600 mg TID PO 02/26/17 18:00 02/27/17 12:14 Verapamil HCl (Isoptin Sr) 180 mg DAILY PO 02/26/17 14:45 02/27/17 08:11 Lisinopril (Prinivil) 40 mg DAILY PO 02/26/17 14:45 02/26/17 16:01 Multivitamins (Theragran) 1 tab DAILY PO 02/26/17 14:45 02/27/17 08:10 Ketorolac Tromethamine (Toradol Inj) 15 mg Q6HR IV PUSH 02/26/17 18:00 03/03/17 17:59 02/27/17 12:14 Enoxaparin Sodium (Lovenox Inj) 40 mg Q24H SQ 02/26/17 16:00 02/26/17 16:01 Vancomycin HCl 1000 mg/Sodium Chloride 250 ml @ 250 mls/hr Q24H IV 02/27/17 13:00 02/27/17 12:15 Miscellaneous Information SPECIFIC LAB TO BE ROBERTO... ONCE ONCE .XX 02/28/17 12:45 02/28/17 12:46 Abacavir Sulfate (Ziagen) 600 mg DAILY PO 02/27/17 09:00 02/27/17 08:10 Lamivudine (Epivir) 300 mg DAILY PO 02/27/17 09:00 02/27/17 08:10 OBJECTIVE: Vital Signs Date Time Temp Pulse Resp B/P (MAP) Pulse Ox O2 Delivery O2 Flow Rate FiO2 02/27/17 15:32 108/59 (75) 02/27/17 12:53 84/43 (57) 02/27/17 12:00 97.6 66 16 86/49 (61) 97 02/27/17 10:30 94 21 02/27/17 08:00 98.1 61 16 90/56 (67) 96 02/27/17 04:00 99.5 76 20 108/58 (75) 97 02/27/17 04:00 78 02/27/17 00:00 74 02/27/17 00:00 100.3 83 20 120/61 (80) 95 02/26/17 20:00 73 02/26/17 20:00 98.1 75 20 117/63 (81) 97 02/26/17 17:05 22 Laboratory Tests Test 02/26/17 10:00 02/27/17 07:18 White Blood Count 12.7 TH/MM3 13.3 TH/MM3 Red Blood Count 5.16 MIL/MM3 4.56 MIL/MM3 Hemoglobin 14.2 GM/DL 12.6 GM/DL Hematocrit 42.7 % 38.0 % Mean Corpuscular Volume 82.7 FL 83.3 FL Mean Corpuscular Hemoglobin 27.6 PG 27.7 PG Mean Corpuscular Hemoglobin Concent 33.4 % 33.2 % Red Cell Distribution Width 14.1 % 14.1 % Platelet Count 228 TH/MM3 191 TH/MM3 Mean Platelet Volume 8.2 FL 9.5 FL Neutrophils (%) (Auto) 68.7 % Lymphocytes (%) (Auto) 21.4 % Monocytes (%) (Auto) 9.1 % Eosinophils (%) (Auto) 0.3 % Basophils (%) (Auto) 0.5 % Neutrophils # (Auto) 8.7 TH/MM3 Lymphocytes # (Auto) 2.7 TH/MM3 Monocytes # (Auto) 1.2 TH/MM3 Eosinophils # (Auto) 0.0 TH/MM3 Basophils # (Auto) 0.1 TH/MM3 CBC Comment DIFF FINAL Differential Comment Laboratory Tests Test 02/26/17 09:55 02/26/17 18:47 02/27/17 00:26 Blood Urea Nitrogen 15 MG/DL 11 MG/DL Creatinine 0.87 MG/DL 0.82 MG/DL Random Glucose 92 MG/DL 97 MG/DL Calcium Level 9.2 MG/DL 8.6 MG/DL Magnesium Level 2.2 MG/DL Sodium Level 138 MEQ/L 134 MEQ/L Potassium Level 3.5 MEQ/L 3.9 MEQ/L Chloride Level 104 MEQ/L 101 MEQ/L Carbon Dioxide Level 29.6 MEQ/L 26.8 MEQ/L Anion Gap 4 MEQ/L 6 MEQ/L Estimat Glomerular Filtration Rate 80 ML/MIN 85 ML/MIN Lactic Acid Level 0.8 mmol/L Total Creatine Kinase 117 U/L Creatine Kinase MB 1.1 NG/ML Troponin I LESS THAN 0.02 NG/ML LESS THAN 0.02 NG/ML LESS THAN 0.02 NG/ML C-Reactive Protein 3.90 MG/DL Microbiology Date/Time Source Procedure Growth Status 02/26/17 18:40 Blood Peripheral Aerobic Blood Culture - Preliminary NO GROWTH IN 1 DAY Resulted 02/26/17 18:40 Blood Peripheral Anaerobic Blood Culture - Preliminary NO GROWTH IN 1 DAY Resulted 02/26/17 15:43 Blood Peripheral Aerobic Blood Culture - Preliminary NO GROWTH IN 1 DAY Resulted 02/26/17 15:43 Blood Peripheral Anaerobic Blood Culture - Preliminary NO GROWTH IN 1 DAY Resulted 02/26/17 09:55 Blood Peripheral Aerobic Blood Culture - Preliminary NO GROWTH IN 1 DAY Resulted 02/26/17 09:55 Blood Peripheral Anaerobic Blood Culture - Preliminary NO GROWTH IN 1 DAY Resulted 02/26/17 13:00 Wound Arm Gram Stain - Final Resulted 02/26/17 13:00 Wound Culture - Preliminary S. Aureus Mrsa Resulted PHYSICAL EXAMINATION: GENERAL: no acute distress. HEAD, EYES, EARS, NOSE, AND THROAT: Head atraumatic. Pupils reactive to light. No icterus. Oropharynx moist mucosa. No lesions. No thrush. NECK: Supple. No adenopathy. LUNGS: Clear to auscultation. HEART: Regular S1, S2, no audible murmurs, rubs or gallops. ABDOMEN: Bowel sounds present, soft, nontender. EXTREMITIES: No clubbing, cyanosis or edema. The left upper extremity remains swollen and indurated at the volar aspect of the arm near the elbow. Mild erythema. SKIN: no diffuse rash. NEUROLOGIC: Nonfocal PSYCHIATRIC: Calm and cooperative. IMPRESSION Abscess of the left forearm with cellulitis. MRSA. HIV disease, stable on medication. Agree with surgical eval. for I & D. RECOMMENDATIONS 1. Continue vancomycin. 2. Monitor wound culture. 3. Monitor blood culture. Ortega Smith MD Feb 27, 2017 15:51
[2017-02-27] MEDS: ENOXAPARIN SODIUM 40 MG/0.4 ML SYRINGE SQ SCH ×2 (16:00→16:37)
--- NOTE | 2017-02-27 17:09 | HHI.PR ---
Subjective Remarks Patient complains of constant and increased pain in the left arm. The patient is hypotensive with a blood pressure of 84/43. Fever with a MAXIMUM TEMPERATURE of 100.3. The patient denies any nausea, vomiting, diarrhea, abdominal pain. Objective Vitals Vital Signs Date Time Temp Pulse Resp B/P (MAP) Pulse Ox O2 Delivery O2 Flow Rate FiO2 02/27/17 16:42 69 109/59 (76) 02/27/17 16:00 98.0 66 18 108/59 (75) 97 02/27/17 15:32 108/59 (75) 02/27/17 12:53 84/43 (57) 02/27/17 12:00 97.6 66 16 86/49 (61) 97 02/27/17 10:30 94 21 02/27/17 08:00 98.1 61 16 90/56 (67) 96 02/27/17 04:00 99.5 76 20 108/58 (75) 97 02/27/17 04:00 78 02/27/17 00:00 74 02/27/17 00:00 100.3 83 20 120/61 (80) 95 02/26/17 20:00 73 02/26/17 20:00 98.1 75 20 117/63 (81) 97 02/26/17 17:05 22 I/O 02/26/17 02/26/17 02/26/17 02/27/17 02/27/17 02/27/17 07:00 15:00 23:00 07:00 15:00 23:00 Intake Total 970 ml 1879 ml Balance 970 ml 1879 ml Intake Oral 720 ml 720 ml IV Total 250 ml 1159 ml # Voids 5 Result Diagram: 02/27/17 0718 02/27/17 0026 Imaging Last Impressions Chest X-Ray 02/26/17 0936 Signed Impressions: Service Date/Time: February 09:48 - CONCLUSION: 1. No acute cardiopulmonary disease. Tony Claire MD Objective Remarks AAOx3, moderate distress due to pain. left forearm is indurated, warm and very tender to palpation Clear lungs BL S1S2 RRR, no MRG abdomen softy, nt, nd No edema in lower extremities Medications and IVs Current Medications Medications (Trade) Dose Ordered Sig/Jessica Route Start Time Stop Time Status Last Admin (NS Flush) 2 ml UNSCH PRN IVF 02/26/17 09:45 (Bactrim Ds 800-160 Mg) 1 tab Q12HR PO 02/26/17 11:45 03/08/17 11:44 02/27/17 08:09 (NS Flush) 2 ml BID IV FLUSH 02/26/17 21:00 02/27/17 07:48 (Tylenol) 500 mg Q4H PRN PO 02/26/17 12:15 Sodium Chloride 1,000 ml @ 75 mls/hr [id number] IV 02/26/17 14:00 02/27/17 16:38 (NS Flush) 2 ml UNSCH PRN IV FLUSH 02/26/17 13:45 (NS Flush) 2 ml BID IV FLUSH 02/26/17 21:00 (Tylenol) 650 mg Q4H PRN PO 02/26/17 13:45 (Zofran Inj) 4 mg Q6H PRN IVP 02/26/17 13:45 (Narcan Inj) 0.4 mg UNSCH PRN IV PUSH 02/26/17 13:45 (Milk Of Magnesia Liq) 30 ml Q12H PRN PO 02/26/17 13:45 Pharmacy Profile Note 0 ml @ 0 mls/hr UNSCH OTHER 02/26/17 13:45 (Lamar 5-325 Mg) 1 tab Q4H PRN PO 02/26/17 14:00 02/27/17 16:39 (Lamar 5-325 Mg) 2 tab Q4H PRN PO 02/26/17 14:00 02/27/17 08:12 (Neurontin) 600 mg TID PO 02/26/17 18:00 02/27/17 12:14 (Isoptin Sr) 180 mg DAILY PO 02/26/17 14:45 02/27/17 08:11 (Prinivil) 40 mg DAILY PO 02/26/17 14:45 02/26/17 16:01 (Theragran) 1 tab DAILY PO 02/26/17 14:45 02/27/17 08:10 (Toradol Inj) 15 mg Q6HR IV PUSH 02/26/17 18:00 03/03/17 17:59 02/27/17 12:14 (Lovenox Inj) 40 mg Q24H SQ 02/26/17 16:00 02/26/17 16:01 Vancomycin HCl 1000 mg/Sodium Chloride 250 ml @ 250 mls/hr Q24H IV 02/27/17 13:00 02/27/17 12:15 Miscellaneous Information SPECIFIC LAB TO BE ROBERTO... ONCE ONCE .XX 02/28/17 12:45 02/28/17 12:46 (Ziagen) 600 mg DAILY PO 02/27/17 09:00 02/27/17 08:10 (Epivir) 300 mg DAILY PO 02/27/17 09:00 02/27/17 08:10 Urinary Catheter: No Vascular Central Line Catheter: No A/P Problem List: (1) Sepsis ICD Code: A41.9 - Sepsis, unspecified organism Status: Acute Plan: Present on admission. Patient with leukocytosis and respiratory rate of 25. Fever with a MAXIMUM TEMPERATURE of 100.3. Started on IV vancomycin. Continue. Cultures negative to date Wound culture growing MRSA Appreciate ID recommendations Consult hand surgery for I&D. Continue IV fluids. (2) Cellulitis of left arm ICD Code: L03.114 - Cellulitis of left upper limb Status: Acute Plan: As above (3) Abscess of left forearm ICD Code: L02.414 - Cutaneous abscess of left upper limb Status: Acute Plan: As above (4) Chest pain ICD Code: R07.9 - Chest pain, unspecified Status: Resolved Plan: As per documentation purposes above. Chest pain resolved now. Troponin negative 3. EKG reviewed by me shows sinus rhythm with first-degree AV block. (5) Hepatitis C ICD Code: B19.20 - Unspecified viral hepatitis C without hepatic coma Status: Chronic (6) HIV (human immunodeficiency virus infection) ICD Code: Z21 - Asymptomatic human immunodeficiency virus [HIV] infection status Status: Acute Plan: A shunt currently on abacavir and lamivudine. Continue Bactrim. CD4 count pending. (7) Hypotension ICD Code: I95.9 - Hypotension, unspecified Plan: Hypotension secondary to sepsis secondary to cellulitis and abscess of the left forearm. Ordered 2 L of IV normal saline IV bolus. Continue to monitor vital signs. Assessment and Plan DVT prophylaxis: Continue SCDs, Lovenox subcutaneously. GI prophylaxis: Add a PPI. Discharge Planning Pending cleaning bowel improvement. The patient is hypotensive. Pending hand surgery consultation. Problem Qualifiers (1) Chest pain: Qualified Codes: R07.9 - Chest pain, unspecified Shoaib Lowe MD Feb 27, 2017 17:09
[2017-02-27] MEDS ORDERED: BUPIVACAINE HCL PF 0.5% 30 ML VIAL ONE (18:18)
[2017-02-27] MEDS ORDERED: MUPIROCIN 2% OINT 22 GM TUBE ONE (18:18)
[2017-02-27] MEDS ORDERED: LIDOCAINE HCL 2% 50 ML VIAL ONE (18:18)
[2017-02-27] MEDS ORDERED: NEOMYCIN/POLYMYXIN 1 ML G.U. IRRIGANT ONE (18:19)
--- NOTE | 2017-02-27 18:39 | RADRPT ---
EXAM DATE/TIME: 02/27/2017 17:50 [facility] COMPARISON: No previous studies available for comparison. INDICATIONS : Pain with no known injury. MEDICAL HISTORY : HIV Hepatitis C. SURGICAL HISTORY : Tubal ligation. Cholecystectomy. ENCOUNTER: Subsequent ACUITY: 2 days PAIN SCORE: 8/10 LOCATION: Left Forearm. FINDINGS: Two view examination of the left forearm demonstrates no evidence of fracture or dislocation. Bony m ineralization is normal. The soft tissue structures are intact. CONCLUSION: No acute disease. João Bustos MD on February 27, 2017 at 18:37 Board Certified Radiologist. This report was verified electronically.
--- NOTE | 2017-02-27 19:17 | RADRPT ---
EXAM DATE/TIME: 02/27/2017 18:44 [facility] COMPARISON: No previous studies available for comparison. INDICATIONS : Left arm redness and swelling. MEDICAL HISTORY : Hypertension. Gastroesophageal reflux disease. . Headaches. Coronary artery disease. Irregul ar heartbeat. Arthritis. Liver disease. Depression. Anxiety. Anemia. HIV. Hep C. MRSA. SURGICAL HISTORY : Cholecystectomy. Tubal ligation. Dilation and curettage. Bilateral hip replacements. ENCOUNTER: Initial ACUITY: 4-6 days PAIN SCORE: 8/10 LOCATION: Left arm. AREA EVALUATED: Medial mid lower arm. FINDINGS: There is diffuse subcutaneous soft tissue swelling within the medial aspect of the lower arm. An ill- defined complex appearing subcutaneous collection measuring 4.2 x 2.2 x 0.7 cm is also noted in this region. Differential includes abscess, hematoma or seroma. CONCLUSION: 1. Ill-defined complex appearing subcutaneous collection measuring 4.2 x 2.2 x 0.7 cm is also noted w ithin the medial aspect of the left lower arm. Differential includes abscess, hematoma or seroma. 2. Diffuse subcutaneous soft tissue swelling. João Bustos MD on February 27, 2017 at 19:11 Board Certified Radiologist. This report was verified electronically.
[2017-02-27] MEDS ORDERED: LACTATED RINGER'S 1000 ML IV PRN (20:15)
[2017-02-27] MEDS ORDERED: POVIDONE IODINE 5% (ANTISEPSIS KIT) 4 APPLICATIONS EACH NARE PRN (20:15)
[2017-02-27] MEDS ORDERED: SODIUM CHLORID 0.9% 500 ML IV PRN (20:15)
[2017-02-27] MEDS ORDERED: CHLORHEXIDINE GLUCONATE 2 % 1 PACK (2 CLOTHS) TOPICAL PRN (20:15)
--- NOTE | 2017-02-27 20:38 | MB ---
cc: MORGAN ZAPATA MD DATE OF CONSULTATION: 02/27/2017. REASON FOR CONSULTATION: Left forearm abscess. HISTORY OF PRESENT ILLNESS: The patient is a 61-year-old female right hand dominant who presented to the emergency department with complaints of pain and swelling over the left forearm for the past five or six days. The patient states she might have been bitten by a spider. She had an incision and drainage of abscess by the emergency department. Hand surgery was consulted for persistent pain and swelling involving the left forearm. She complains of worsening pain which has not been relieved by incision and drainage. She also complains of a tingling sensation over the fingertips. The patient gives a history of IV drug abuse. She also complains of associated swelling of the hand and forearm. She denies any fever or chills. PAST MEDICAL HISTORY : 1. HIV. 2. Hepatitis C. 3. Hypertension. PAST SURGICAL HISTORY: Bilateral hip replacement. PHYSICAL EXAMINATION: The patient is alert and oriented x3. Examination of left upper extremity reveals swelling of the forearm which extends from the distal third of the forearm up to the mid palm. There is an area of incision along the mid forearm over the ulnar aspect. Surrounding induration noted. Exquisite tenderness noted along the ulnar aspect of the forearm. Tenderness also noted along the volar ulnar aspect of the forearm. The compartment appears to be firm. She is able to make a fist. Terminal degrees of flexion of the fingers is painful. Terminal degrees of extension of the fingers is painful. She has intact capillary refill. She has intact distal sensation. She has a palpable radial artery. Fluctuation could not be elicited because of the exquisite tenderness. LABORATORY STUDIES: Her lab work was reviewed. She has a white count of 13.3 which has been trending higher. she has a neutrophil shift of 68%. ASSESSMENT: 61-year-old female with history of IV drug abuse with abscess over the left forearm. PLAN: 1. Plan will be to keep the patient n.p.o.. 2. We will obtain x-rays and ultrasound of the left forearm. 3. Will obtain consent for incision and drainage of left forearm abscess. 4. Patient has been explained about the risks and benefits of the procedure. Morgan Zapata MD SE/TORY /5:32 PM /8:22 PM [facility]
[2017-02-27] MEDS ORDERED: ceFAZolin INJ 1,000 MG VIAL IV ONE (21:26)
--- NOTE | 2017-02-27 21:57 | PD.OP ---
Operative Report Preoperative Diagnosis: (1) Abscess of left forearm Postoperative Diagnosis: (1) Abscess of left forearm (2) compartment syndrome left forearm Procedure: incision and drainage left forearm volar compartment release left forearm wound vac application left forearm Anesthesia: general Surgeon: Remy Gaming Warp Tying Machine Knotter(s): alex Operation and Findings: abscess with necrotic tissue subcutaneous region left forearm bulging volar compartment muscles Remy Gaming MD Feb 27, 2017 21:57
[2017-02-27] MEDS ORDERED: DO NOT ADM ANY ANTICOAGULANT DRUGS PRN (22:00)
[2017-02-27] MEDS ORDERED: *morphine SULFATE 8 MG/ML PERIprocedure ONLY ONE ×2 (22:07→22:37)
[2017-02-28] VITALS: BP 112/54; PULSE 73; RESP 16; TEMP 98.1; O2SAT 98
[2017-02-28] MEDS ORDERED: LACTATED RINGER'S 1000 ML IV PRN (00:30)
[2017-02-28] MEDS ORDERED: POVIDONE IODINE 5% (ANTISEPSIS KIT) 4 APPLICATIONS EACH NARE PRN (00:30)
[2017-02-28] MEDS ORDERED: METOPROLOL TARTRATE 25 MG TAB PO PRN (00:30)
[2017-02-28] MEDS ORDERED: CHLORHEXIDINE GLUCONATE 2 % 1 PACK (2 CLOTHS) TOPICAL PRN (00:30)
[2017-02-28] MEDS ORDERED: SODIUM CHLORID 0.9% 500 ML IV PRN (00:30)
[2017-02-28] MEDS ORDERED: INSULIN HUMAN REGULAR 1,000 UNITS/10 ML VIAL SQ PRN (00:30)
[2017-02-28] MEDS: ACETAMINOPHEN/HYDROcodone 325 MG/5 MG TAB PO PRN ×2 (01:47→08:10)
[2017-02-28 04:00] VITALS: BP 102/55; PULSE 71; RESP 16; TEMP 97.9; O2SAT 98
[2017-02-28] MEDS: KETOROLAC TROMETHAMINE 30 MG/ML (IVP) VIAL IV PUSH SCH ×3 (04:50→17:00)
[2017-02-28] MEDS: SODIUM CHLOR 0.45% 1000 ML INJ 1,000 ML IV SCH ×2 (04:51→20:23)
[2017-02-28 06:43] LABS: AUTOMATED NEUTROPHIL # 11.3 TH/MM3 (1.8-7.7); BASOPHIL % 0.1 % (0.0-2.0); EOSINOPHIL % 0.2 % (0.0-4.0); HEMATOCRIT 34.6 % (35.0-46.0); HEMO FLAGS DIFF FINAL; LYMPH % 3.6 % (9.0-44.0); LYMPHOCYTE # 0.4 TH/MM3 (1.0-4.8); MEAN CELL VOLUME 83.9 FL (80.0-100.0); MEAN CORPUSCULAR HEMOGLOBIN 27.5 PG (27.0-34.0); MEAN CORPUSCULAR HGB CONC 32.8 % (32.0-36.0); MONO % 1.6 % (0.0-8.0); NEUT % 94.5 % (16.0-70.0); PLATELET COUNT 182 TH/MM3 (150-450); RED BLOOD COUNT 4.13 MIL/MM3 (4.00-5.30)
[2017-02-28 07:05] LABS: ALT (GPT) 27 U/L (10-53); ANION GAP 6 MEQ/L (5-15); AST (GOT) 17 U/L (15-37); BICARBONATE 25.7 MEQ/L (21.0-32.0); BLOOD UREA NITROGEN 7 MG/DL (7-18); CHLORIDE 108 MEQ/L (98-107); GLOMERULAR FILTRATION RATE 90 ML/MIN (>89); MAGNESIUM 1.9 MG/DL (1.5-2.5); POTASSIUM 4.3 MEQ/L (3.5-5.1); SODIUM (NA) 140 MEQ/L (136-145)
[2017-02-28 07:08] LABS: ALKALINE PHOSPHATASE 62 U/L (45-117); TOTAL BILIRUBIN ADULT 0.2 MG/DL (0.2-1.0)
[2017-02-28 08:00] VITALS: BP 110/59; PULSE 66; PULSE 87; RESP 20; TEMP 99; O2SAT 99
[2017-02-28] MEDS: ABACAVIR SULFATE 300 MG TAB PO SCH (08:09)
[2017-02-28] MEDS: SULFAMETHOXAZOLE-TRIMETHOPRIM DS 800-160 MG TAB PO SCH ×2 (08:09→20:23)
[2017-02-28] MEDS: GABAPENTIN 300 MG CAP PO SCH ×3 (08:09→17:00)
[2017-02-28] MEDS: MULTIVITAMIN TAB PO SCH (08:09)
[2017-02-28] MEDS: VERAPAMIL HCL 180 MG SUSTAINED RELEASE TAB PO SCH (08:10)
[2017-02-28] MEDS: DOLUTEGRAVIR SODIUM 50 MG TAB PO SCH (08:10)
[2017-02-28] MEDS: LISINOPRIL 20 MG TAB PO SCH (08:10)
[2017-02-28] MEDS: SODIUM CHLORIDE 0.9% FLUSH 10 ML FLUSH IV FLUSH SCH ×2 (08:11→20:23)
[2017-02-28] MEDS: VANCOMYCIN 1,000 MG/NS 250 ML IV SCH ×2 (11:46)
[2017-02-28 12:00] VITALS: BP 110/57; PULSE 58; RESP 20; TEMP 99.3; O2SAT 97
--- NOTE | 2017-02-28 12:24 | HHI.PR ---
Subjective Remarks Patient says she is feeling all right. Reports pain is controlled. Denies any chest pain or shortness of breath. Denies any nausea or vomiting. Objective Vital Signs Date Time Temp Pulse Resp B/P (MAP) Pulse Ox O2 Delivery O2 Flow Rate FiO2 02/28/17 08:00 87 02/28/17 04:00 97.9 71 16 102/55 (71) 98 02/28/17 00:00 98.1 73 16 112/54 (73) 98 02/27/17 22:30 70 11 123/67 (85) 100 02/27/17 22:15 77 11 120/66 (84) 98 02/27/17 22:00 98.6 84 15 121/63 (82) 96 02/27/17 20:00 98.6 71 16 111/56 (74) 97 02/27/17 18:09 97 21 02/27/17 16:42 69 109/59 (76) 02/27/17 16:27 69 02/27/17 16:00 98.0 66 18 108/59 (75) 97 02/27/17 15:32 108/59 (75) 02/27/17 12:53 84/43 (57) I/O 02/27/17 02/27/17 02/27/17 02/28/17 02/28/17 02/28/17 07:00 15:00 23:00 07:00 15:00 23:00 Intake Total 1879 ml 970 ml 2000 ml Output Total 1205 ml Balance 1879 ml 970 ml 795 ml Intake Oral 720 ml 720 ml IV Total 1159 ml 250 ml 2000 ml Output Urine Total 1200 ml Estimated Blood Loss 5 ml # Voids 5 4 Result Diagram: 02/28/17 0600 02/28/17 0600 Objective Remarks GENERAL: Patient sitting up in bed. Appears comfortable. SKIN: Warm and dry. HEAD: Normocephalic. EYES: No scleral icterus. No injection or drainage. NECK: Supple, trachea midline. No JVD CARDIOVASCULAR: Regular rate and rhythm without murmurs, gallops, or rubs. RESPIRATORY: Breath sounds equal bilaterally. No accessory muscle use. GASTROINTESTINAL: Abdomen soft, non-tender, nondistended. MUSCULOSKELETAL: No cyanosis, or edema. Arm elevated, dressing intact.. BACK: Nontender without obvious deformity. No CVA tenderness. A/P Assessment and Plan //Sepsis ICD Code: A41.9 - Sepsis, unspecified organism Status: Acute Plan: Present on admission. Patient with leukocytosis and respiratory rate of 25. Fever with a MAXIMUM TEMPERATURE of 100.3. Started on IV vancomycin. Continue. Cultures negative to date Wound culture growing MRSA Appreciate ID recommendations Consult hand surgery for I&D. Continue IV fluids. = 02/28. Still with leukocytosis 12. Repeat and surgery today. MRSA on cultures. Appreciate assistance. Continue antibiotics. //Cellulitis of left arm //MRSA cellulitis. ICD Code: L03.114 - Cellulitis of left upper limb = Hand surgery following. Appreciate assistance. // Chest pain ICD Code: R07.9 - Chest pain, unspecified Status: Resolved Plan: As per documentation purposes above. Chest pain resolved now. Troponin negative 3. EKG reviewed by me shows sinus rhythm with first-degree AV block. = 02/28. Chest pain resolved. Possibly secondary to cocaine. Patient counseled on cessation. //Cocaine abuse. Positive on urinalysis. Patient counseled on cessation. //Hepatitis C ICD Code: B19.20 - Unspecified viral hepatitis C without hepatic coma Status: Chronic = Follow-up with primary care as outpatient. // HIV (human immunodeficiency virus infection) ICD Code: Z21 - Asymptomatic human immunodeficiency virus [HIV] infection status Status: Acute - currently on abacavir and lamivudine. Continue Bactrim. CD4 count still pending. // Hypotensionappears resolved. ICD Code: I95.9 - Hypotension, unspecified Plan: Hypotension secondary to sepsis secondary to cellulitis and abscess of the left forearm. Ordered 2 L of IV normal saline IV bolus. Continue to monitor vital signs. = Appears resolved after IV fluids. Continue to monitor. Assessment and Plan DVT prophylaxis: Continue SCDs, Lovenox subcutaneously. Discharge Planning Repeat an surgery today. Pending hand surgery clearance. Avtar De Souza MD Feb 28, 2017 12:24
[2017-02-28] MEDS ORDERED: NEOMYCIN/POLYMYXIN 1 ML G.U. IRRIGANT ONE (12:26)
[2017-02-28] MEDS ORDERED: PHARMACY ORDERED LAB ONE (12:45)
--- NOTE | 2017-02-28 13:06 | MP ---
cc: MORGAN ZAPATA MD DATE OF SURGERY: February 27, 2017. PREOPERATIVE DIAGNOSIS Abscess left forearm. POSTOPERATIVE DIAGNOSIS Abscess left forearm and volar compartment syndrome left forearm. PROCEDURE Incision and drainage left forearm abscess Volar compartment release left forearm. Wound vac application. SURGEON Dr. Morgan Zapata ANESTHESIA General ESTIMATED BLOOD LOSS 10 cc TOURNIQUET TIME 24 minutes at 250 mmHg. SPECIMENS: The Specimen was sent for culture sensitivity. FINDINGS: The patient was sent to Recovery Room in stable condition. PROCEDURE: The patient is a 61-year-old female with history of IV drug abuse admitted to the hospital with complaints of pain and swelling involving the left forearm. She underwent incision and drainage by the emergency department and she complained of worsening symptoms. On examination she had swelling involving the whole of the left forearm. She also had induration around the ulnar aspect of the mid forearm. She has intact pulses and compartments were supple initially as she was awaiting surgery. She complained of worsening symptoms involving the left forearm and the forearm compartments appear to be tense and swollen. She was consented for incision drainage of left forearm abscess. The patient was brought to the operating room under general anesthesia the left upper extremity was thoroughly prepped and draped. Incision site was marked incorporating the previous incision done by the emergency department over the mid ulnar aspect of the forearm measuring about 5-6 cm. After limb elevation tourniquet was inflated to 250 mmHg the incision was made over the proposed incision site. The soft tissue dissection was carried out. On exploration, there was a cavity in the subcutaneous location with necrotic purulent material. This was drained and material was sent for culture sensitivity. On further exploration the forearm compartment muscles appear to be tense and bulging within the fascia and hence decision was made to proceed with compartment release. Incision was then extended both proximally and distally and volar forearm fascia was released across the length of the forearm. There is evidence of bulging of the muscles. No evidence of necrotic muscle was noted. No evidence of pocket of collection within the forearm compartment was noted. Thorough wash was given using normal saline mixed with hydrogen peroxide and normal saline mixed with irrigant to about limb, sedation was used. Excisional debridement of necrotic material was carried out. Tourniquet was deflated. Total tourniquet time was 24 minutes. She had good distal circulation. Bleeding points were cauterized with bipolar cautery. Wound vac was then applied over the forearm region and set at intermittent 125 mmHg, 3 minutes on and 1 minute off. Bulky forearm dressing was applied which was held in place by Sof-Rol and a bias hand wrap. She had good distal circulation at the end of the procedure. She was recovered and sent to Recovery Room in stable condition. We will bring the patient back tomorrow for repeat exploration wash and wound vac change. Morgan Zapata MD SE/mami /9:57 PM /12:53 PM [facility]
[2017-02-28] MEDS ORDERED: BACITRACIN OPHT OINT 3.5 GM TUBO ONE (13:09)
[2017-02-28] MEDS ORDERED: BACITRACIN TOP OINT 15 GM TUBE ONE (13:10)
--- NOTE | 2017-02-28 13:23 | PD.OP ---
Operative Report Preoperative Diagnosis: (1) Abscess of left forearm (2) compartment syndrome left forearm Postoperative Diagnosis: (1) Abscess of left forearm (2) compartment syndrome left forearm Procedure: exploration, wash, excisional debridement left forearm Anesthesia: general Surgeon: Remy Gaming Leaf Tinner(s): alex Operation and Findings: minimal necrotic tissue involving the skin, subcutaneous tissue and fascia viable muscles Remy Gaming MD Feb 28, 2017 13:23
[2017-02-28] MEDS ORDERED: *morphine SULFATE 8 MG/ML PERIprocedure ONLY ONE (13:29)
[2017-02-28 16:00] VITALS: BP 120/57; PULSE 66; RESP 18; TEMP 97.6; O2SAT 98
[2017-02-28] MEDS: ENOXAPARIN SODIUM 40 MG/0.4 ML SYRINGE SQ SCH (17:00)
--- NOTE | 2017-02-28 17:27 | MP ---
cc: REMY ZAPATA DATE OF SURGERY February 28, 2017 PREOPERATIVE DIAGNOSIS Abscess left forearm, compartment syndrome right forearm. POSTOPERATIVE DIAGNOSIS Abscess left forearm, compartment syndrome left forearm. PROCEDURE Exploration, wash, excisional debridement left forearm. SURGEON Dr. Denisse Zapata ANESTHESIA General ESTIMATED BLOOD LOSS Minimal. TOURNIQUET TIME No tourniquet was used. DISPOSITION The patient was recovered and sent to recovery in stable condition. INDICATIONS The patient is a 61-year-old female with history of IV drug abuse and abscess of the left forearm and compartment syndrome. The patient underwent incision and drainage of left forearm abscess and compartment release yesterday. She was brought in today for repeat exploration, debridement and possible wound VAC change. The patient was explained risks and benefits of the procedure. PROCEDURE IN DETAIL The patient was brought to the operating room under general anesthesia. The left upper extremity was thoroughly prepped and draped. The previously placed wound VAC was removed. On exploration, she had minimal necrotic tissue involving the skin, subcutaneous tissue on the fascia which was debrided. The muscles appeared to be viable. Thorough wash of the wound was carried out using normal saline mixed with hydrogen peroxide. This was then followed by normal saline mixed with irrigant. Bleeding points were cauterized with bipolar cautery. The skin and subcutaneous tissue was then approximated using nisa and vessel loop in a shoelace pattern. Xeroform bacitracin dressing applied. She had good distal circulation at the end of the procedure. Bulky hand dressing was applied which was held in place by Sof-Rol and bias hand wrap. The patient was recovered, sent to go recovery in stable condition. The plan will be to bring the patient again tomorrow for a wash, debridement and a partial closure of the wound. We will continue with IV antibiotics. Remy Zapata MD SE/ /1:23 PM /5:18 PM [facility]
[2017-02-28 20:00] VITALS: BP 112/59; PULSE 78; PULSE 82; RESP 16; TEMP 97.8; O2SAT 97
[2017-03-01] VITALS (8 sets, daily range): BP systolic 104–142; BP diastolic 51–68; PULSE 55–74; RESP 16–20; TEMP 97–98.5; O2SAT 94–100
[2017-03-01] MEDS: KETOROLAC TROMETHAMINE 30 MG/ML (IVP) VIAL IV PUSH SCH ×4 (00:13→17:33)
[2017-03-01] MEDS: VANCOMYCIN INJ 750 MG in SODIUM CHLOR 0.9% 250 ML INJ 250 ML IV SCH ×2 (00:15→13:09)
[2017-03-01 03:53] LABS: CD4/CD8 RATIO 0.6 (0.86-5.00)
[2017-03-01] MEDS: LISINOPRIL 20 MG TAB PO SCH (09:24)
[2017-03-01] MEDS: SULFAMETHOXAZOLE-TRIMETHOPRIM DS 800-160 MG TAB PO SCH ×2 (09:24→21:11)
[2017-03-01] MEDS: DOLUTEGRAVIR SODIUM 50 MG TAB PO SCH (09:25)
[2017-03-01] MEDS: GABAPENTIN 300 MG CAP PO SCH ×3 (09:25→17:33)
[2017-03-01] MEDS: MULTIVITAMIN TAB PO SCH (09:25)
[2017-03-01] MEDS: VERAPAMIL HCL 180 MG SUSTAINED RELEASE TAB PO SCH (09:25)
[2017-03-01] MEDS: ABACAVIR SULFATE 300 MG TAB PO SCH (09:25)
[2017-03-01] MEDS: SODIUM CHLORIDE 0.9% FLUSH 10 ML FLUSH IV FLUSH SCH ×2 (09:26→21:11)
[2017-03-01] MEDS: ACETAMINOPHEN/HYDROcodone 325 MG/5 MG TAB PO PRN ×2 (09:30→21:10)
[2017-03-01] MEDS: SODIUM CHLOR 0.45% 1000 ML INJ 1,000 ML IV SCH ×2 (09:33→22:00)
[2017-03-01] MEDS ORDERED: DO NOT ADM ANY ANTICOAGULANT DRUGS PRN (10:57)
[2017-03-01] MEDS ORDERED: LIDOCAINE HCL 2% 50 ML VIAL ONE (13:33)
[2017-03-01] MEDS ORDERED: BUPIVACAINE HCL PF 0.5% 30 ML VIAL ONE (13:33)
[2017-03-01] MEDS ORDERED: MUPIROCIN 2% OINT 22 GM TUBE ONE (13:34)
[2017-03-01] MEDS ORDERED: NEOMYCIN/POLYMYXIN 1 ML G.U. IRRIGANT ONE (13:46)
--- NOTE | 2017-03-01 14:56 | PD.OP ---
Operative Report Preoperative Diagnosis: (1) Abscess of left forearm (2) compartment syndrome left forearm Postoperative Diagnosis: (1) compartment syndrome left forearm (2) Abscess of left forearm Procedure: wash, excisional debridement and partial closure left forearm fasciotomy wound Anesthesia: general Surgeon: Remy Gaming Fur Coat Sewer(s): alex Operation and Findings: minimal necrotic and devitalized tissues involving the fascia, skin and subcutaneous tissue left forearm Remy Gaming MD Mar 01, 2017 14:56
--- NOTE | 2017-03-01 15:28 | MP ---
cc: REMY ZAPATA MD DATE OF SURGERY: 03/01/2017. PREOPERATIVE DIAGNOSIS: Abscess left forearm status post forearm fasciotomy left side. POSTOPERATIVE DIAGNOSIS: Abscess left forearm status post forearm fasciotomy left forearm. OPERATIVE PROCEDURE PERFORMED: Wash, excisional debridement and partial closure of fasciotomy wound, left forearm. SURGEON: Remy Zapata M.D. ANESTHESIA: General. ESTIMATED BLOOD LOSS: 10 cc. TOURNIQUET TIME: No tourniquet was used. SPECIMEN: Discarded. DISPOSITION: To post-anesthesia care unit stable. INDICATIONS FOR THE PROCEDURE: The patient is a 61-year-old female who was diagnosed with a left forearm abscess and forearm compartment syndrome. She underwent incision and drainage and forearm compartment release two to three days ago. She was brought in today again for repeat debridement and wash. The patient denied any fever. DESCRIPTION OF THE PROCEDURE IN DETAIL: The patient was consented for the same. She was brought to the operating room and under general anesthesia the left upper extremity was thoroughly prepped and draped. The previously placed Vesseloops and nisa were removed. There was necrosis of the skin edges, which was excised. There was evidence of minimal necrotic tissue involving the skin, subcutaneous tissue and fascia, which was debrided. No purulence noted. Thorough wash was given using normal saline mixed with irrigant and normal saline mixed with hydrogen peroxide. Bleeding points were cauterized with bipolar cautery. The skin flaps were then approximated both at the proximal and distal aspects with nisa. There was an area of about 5 cm x 3 cm for wound still open. Xeroform and bacitracin dressing applied. A bulky hand dressing was applied which was held in place by Sof-Rol and bias hand wrap. She had good distal circulation at the end of the procedure. She was recovered and sent to the recovery room in stable condition. PLAN: The plan will be to bring the patient for repeat wash and possible closure tomorrow. Remy Zapata MD SE/TORY /2:57 PM /3:20 PM [facility] NETWORKJacqueline
[2017-03-01] MEDS: ENOXAPARIN SODIUM 40 MG/0.4 ML SYRINGE SQ SCH (16:00)
--- NOTE | 2017-03-01 20:20 | HHI.PR ---
Subjective Remarks Patient seen this morning around 10 AM. Says she is feeling well. Denies any chest pain or shortness of breath. Reports pain is controlled. Objective Vital Signs Date Time Temp Pulse Resp B/P (MAP) Pulse Ox O2 Delivery O2 Flow Rate FiO2 03/01/17 17:55 99 21 03/01/17 16:00 67 03/01/17 16:00 97.7 73 18 123/66 (85) 100 03/01/17 15:27 68 19 97/55 (69) 95 Room Air 03/01/17 15:15 77 19 110/57 (74) 97 Room Air 03/01/17 15:00 78 19 110/56 (74) 96 Room Air 03/01/17 14:55 97.6 77 19 108/57 (74) 94 Room Air 03/01/17 12:00 97.0 58 18 129/64 (85) 96 03/01/17 12:00 55 03/01/17 10:08 96 03/01/17 08:00 56 03/01/17 08:00 97.5 60 18 142/68 (92) 96 03/01/17 04:00 61 03/01/17 04:00 98.5 66 18 125/58 (80) 94 03/01/17 00:00 67 03/01/17 00:00 97.7 68 16 104/51 (68) 98 I/O 02/28/17 02/28/17 02/28/17 03/01/17 03/01/17 03/01/17 07:00 15:00 23:00 07:00 15:00 23:00 Intake Total 2000 ml 482 ml 1307.5 ml 1617 ml Output Total 1205 ml 2500 ml 2000 ml Balance 795 ml -2018 ml -2000 ml 1307.5 ml 1617 ml Intake Oral 482 ml 360 ml IV Total 2000 ml 1257.5 ml 1257 ml Other 50 ml Output Urine Total 1200 ml 2500 ml 2000 ml Estimated Blood Loss 5 ml # Voids 4 # Bowel Movements 0 0 Result Diagram: 02/28/17 0600 02/28/17 0600 Objective Remarks GENERAL: Patient sitting up in bed. Appears comfortable.left arm still dressed and elevated.exam unchanged from yesterday. SKIN: Warm and dry. HEAD: Normocephalic. EYES: No scleral icterus. No injection or drainage. NECK: Supple, trachea midline. No JVD CARDIOVASCULAR: Regular rate and rhythm without murmurs, gallops, or rubs. RESPIRATORY: Breath sounds equal bilaterally. No accessory muscle use. GASTROINTESTINAL: Abdomen soft, non-tender, nondistended. MUSCULOSKELETAL: No cyanosis, or edema. Arm elevated, dressing intact.. BACK: Nontender without obvious deformity. No CVA tenderness. A/P Assessment and Plan 03/01. Vital signs reviewed and acceptable. I discussed the case with hand surgery. Patient to go for repeat surgery today. Repeat cultures from be performed. Hand surgery says likely will be inpatient for 2 more days. MRSA sensitive to clindamycin, Bactrim. Continue to monitor. Appreciate hand surgery assistance. //Sepsis ICD Code: A41.9 - Sepsis, unspecified organism Status: Acute Plan: Present on admission. Patient with leukocytosis and respiratory rate of 25. Fever with a MAXIMUM TEMPERATURE of 100.3. Started on IV vancomycin. Continue. Cultures negative to date Wound culture growing MRSA Appreciate ID recommendations Consult hand surgery for I&D. Continue IV fluids. = 02/28. Still with leukocytosis 12. Repeat and surgery today. MRSA on cultures. Appreciate assistance. Continue antibiotics. //Cellulitis of left arm //MRSA cellulitis. ICD Code: L03.114 - Cellulitis of left upper limb = Hand surgery following. Appreciate assistance. // Chest pain ICD Code: R07.9 - Chest pain, unspecified Status: Resolved Plan: As per documentation purposes above. Chest pain resolved now. Troponin negative 3. EKG reviewed by me shows sinus rhythm with first-degree AV block. = 02/28. Chest pain resolved. Possibly secondary to cocaine. Patient counseled on cessation. //Cocaine abuse. Positive on urinalysis. Patient counseled on cessation. //Hepatitis C ICD Code: B19.20 - Unspecified viral hepatitis C without hepatic coma Status: Chronic = Follow-up with primary care as outpatient. // HIV (human immunodeficiency virus infection) ICD Code: Z21 - Asymptomatic human immunodeficiency virus [HIV] infection status Status: Acute - currently on abacavir and lamivudine. Continue Bactrim. CD4 count still pending. // Hypotensionappears resolved. ICD Code: I95.9 - Hypotension, unspecified Plan: Hypotension secondary to sepsis secondary to cellulitis and abscess of the left forearm. Ordered 2 L of IV normal saline IV bolus. Continue to monitor vital signs. = Appears resolved after IV fluids. Continue to monitor. Assessment and Plan DVT prophylaxis: Continue SCDs, Lovenox subcutaneously. Discharge Planning Repeat hand surgery again today. Pending hand surgery clearance. and surgery as indicated tentatively might be able to discharge on 03/03 Avtar De Souza MD Mar 01, 2017 20:20
[2017-03-02] VITALS: BP 138/63; PULSE 70; RESP 20; TEMP 97.9; O2SAT 98
[2017-03-02] MEDS: VANCOMYCIN INJ 750 MG in SODIUM CHLOR 0.9% 250 ML INJ 250 ML IV SCH ×2 (02:49→17:17)
[2017-03-02] MEDS: ACETAMINOPHEN/HYDROcodone 325 MG/5 MG TAB PO PRN ×3 (02:50→21:45)
[2017-03-02 04:00] VITALS: BP 151/71; PULSE 62; RESP 20; TEMP 98.2; O2SAT 97
[2017-03-02] MEDS: SODIUM CHLOR 0.45% 1000 ML INJ 1,000 ML IV SCH ×2 (05:22→21:46)
[2017-03-02] MEDS: KETOROLAC TROMETHAMINE 30 MG/ML (IVP) VIAL IV PUSH SCH ×6 (05:22→23:37)
[2017-03-02 07:26] LABS: AUTOMATED NEUTROPHIL # 10.8 TH/MM3 (1.8-7.7); BASOPHIL # 0.1 TH/MM3 (0-0.2); BASOPHIL % 0.6 % (0.0-2.0); EOSINOPHIL # 0.2 TH/MM3 (0-0.4); EOSINOPHIL % 1.7 % (0.0-4.0); HEMATOCRIT 33.1 % (35.0-46.0); HEMO FLAGS DIFF FINAL; LYMPH % 8.9 % (9.0-44.0); LYMPHOCYTE # 1.1 TH/MM3 (1.0-4.8); MEAN CELL VOLUME 83.8 FL (80.0-100.0); MEAN CORPUSCULAR HEMOGLOBIN 27.7 PG (27.0-34.0); MEAN CORPUSCULAR HGB CONC 33.1 % (32.0-36.0); MONO % 4.9 % (0.0-8.0); NEUT % 83.9 % (16.0-70.0); PLATELET COUNT 211 TH/MM3 (150-450); RED BLOOD COUNT 3.94 MIL/MM3 (4.00-5.30); RED CELL DISTRIBUTION WIDTH 14.5 % (11.6-17.2); WHITE BLOOD COUNT 12.9 TH/MM3 (4.0-11.0)
[2017-03-02 08:00] VITALS: BP 147/70; PULSE 53; PULSE 57; RESP 19; TEMP 97.3; O2SAT 99
[2017-03-02] MEDS: SODIUM CHLORIDE 0.9% FLUSH 10 ML FLUSH IV FLUSH SCH ×2 (09:00→21:00)
[2017-03-02 09:35] VITALS: PULSE 62
[2017-03-02] MEDS: DOLUTEGRAVIR SODIUM 50 MG TAB PO SCH (09:35)
[2017-03-02] MEDS: LISINOPRIL 20 MG TAB PO SCH (09:35)
[2017-03-02] MEDS: MULTIVITAMIN TAB PO SCH (09:35)
[2017-03-02] MEDS: ABACAVIR SULFATE 300 MG TAB PO SCH (09:36)
[2017-03-02] MEDS: VERAPAMIL HCL 180 MG SUSTAINED RELEASE TAB PO SCH (09:36)
[2017-03-02] MEDS: GABAPENTIN 300 MG CAP PO SCH ×3 (09:36→17:17)
[2017-03-02] MEDS: SULFAMETHOXAZOLE-TRIMETHOPRIM DS 800-160 MG TAB PO SCH ×2 (09:36→21:45)
[2017-03-02 12:00] VITALS: BP 135/68; PULSE 56; RESP 20; TEMP 96.4; O2SAT 99
[2017-03-02] MEDS ORDERED: PHARMACY ORDERED LAB ONE (13:45)
[2017-03-02] MEDS ORDERED: DOCUSATE SODIUM 50 MG/SENNA 8.6 MG TAB PO ONE (14:00)
--- NOTE | 2017-03-02 14:01 | HHI.PR ---
Subjective Remarks She says she is feeling all right today. Denies any chest pressure as of breath. Reports pain is controlled. Going for repeat left arm surgery. Discussed with nursing. Objective Vital Signs Date Time Temp Pulse Resp B/P (MAP) Pulse Ox O2 Delivery O2 Flow Rate FiO2 03/02/17 09:35 62 03/02/17 08:00 97.3 57 19 147/70 (95) 99 03/02/17 04:00 98.2 62 20 151/71 (97) 97 03/02/17 00:00 97.9 70 20 138/63 (88) 98 03/01/17 20:00 97.7 74 20 126/61 (82) 97 03/01/17 17:55 99 21 03/01/17 16:00 67 03/01/17 16:00 97.7 73 18 123/66 (85) 100 03/01/17 15:27 68 19 97/55 (69) 95 Room Air 03/01/17 15:15 77 19 110/57 (74) 97 Room Air 03/01/17 15:00 78 19 110/56 (74) 96 Room Air 03/01/17 14:55 97.6 77 19 108/57 (74) 94 Room Air I/O 03/01/17 03/01/17 03/01/17 03/02/17 03/02/17 03/02/17 07:00 15:00 23:00 07:00 15:00 23:00 Intake Total 1307.5 ml 3471 ml Output Total 2000 ml 400 ml 800 ml Balance -2000 ml 1307.5 ml 3071 ml -800 ml Intake Oral 660 ml IV Total 1257.5 ml 2811 ml Other 50 ml Output Urine Total 2000 ml 400 ml 800 ml # Voids 4 # Bowel Movements 0 0 Result Diagram: 03/02/17 0650 02/28/17 0600 Objective Remarks GENERAL: Patient sitting up in bed. Appears comfortable.left arm still dressed and elevated.exam again unchanged from yesterday. SKIN: Warm and dry. HEAD: Normocephalic. EYES: No scleral icterus. No injection or drainage. NECK: Supple, trachea midline. No JVD CARDIOVASCULAR: Regular rate and rhythm without murmurs, gallops, or rubs. RESPIRATORY: Breath sounds equal bilaterally. No accessory muscle use. GASTROINTESTINAL: Abdomen soft, non-tender, nondistended. MUSCULOSKELETAL: No cyanosis, or edema. Arm elevated, dressing intact.. BACK: Nontender without obvious deformity. No CVA tenderness. A/P Assessment and Plan 03/02. Vital signs reviewed again and stable. Repeat surgery again today. Possible discharge tomorrow pending hand surgery recommendations. = MRSA sensitive to clindamycin, Bactrim. Continue to monitor. Appreciate hand surgery assistance. //Sepsis ICD Code: A41.9 - Sepsis, unspecified organism Status: Acute Plan: Present on admission. Patient with leukocytosis and respiratory rate of 25. Fever with a MAXIMUM TEMPERATURE of 100.3. Started on IV vancomycin. Continue. Cultures negative to date Wound culture growing MRSA Appreciate ID recommendations Consult hand surgery for I&D. Continue IV fluids. = 02/28. Still with leukocytosis 12. Repeat and surgery today. MRSA on cultures. Appreciate assistance. Continue antibiotics. //Cellulitis of left arm //MRSA cellulitis. ICD Code: L03.114 - Cellulitis of left upper limb = Hand surgery following. Appreciate assistance. // Chest pain ICD Code: R07.9 - Chest pain, unspecified Status: Resolved Plan: As per documentation purposes above. Chest pain resolved now. Troponin negative 3. EKG reviewed by me shows sinus rhythm with first-degree AV block. = 02/28. Chest pain resolved. Possibly secondary to cocaine. Patient counseled on cessation. //Cocaine abuse. Positive on urinalysis. Patient counseled on cessation. //Hepatitis C ICD Code: B19.20 - Unspecified viral hepatitis C without hepatic coma Status: Chronic = Follow-up with primary care as outpatient. // HIV (human immunodeficiency virus infection) ICD Code: Z21 - Asymptomatic human immunodeficiency virus [HIV] infection status Status: Acute - currently on abacavir and lamivudine. Continue Bactrim. CD4 count still pending. // Hypotensionappears resolved. ICD Code: I95.9 - Hypotension, unspecified Plan: Hypotension secondary to sepsis secondary to cellulitis and abscess of the left forearm. Ordered 2 L of IV normal saline IV bolus. Continue to monitor vital signs. = Appears resolved after IV fluids. Continue to monitor. Assessment and Plan DVT prophylaxis: Continue SCDs, Lovenox subcutaneously. Discharge Planning Repeat hand surgery again today 03/02. Pending hand surgery clearance. hand surgery as indicated tentatively might be able to discharge on 03/03 Avtar De Souza MD Mar 02, 2017 14:01
[2017-03-02] MEDS ORDERED: MAGNESIUM HYDROXIDE SUSP 30 ML CUP PO ONE (14:15)
[2017-03-02] MEDS ORDERED: LIDOCAINE HCL 2% 50 ML VIAL ONE (14:57)
[2017-03-02] MEDS ORDERED: BACITRACIN TOP OINT 15 GM TUBE ONE (14:58)
[2017-03-02] MEDS ORDERED: BUPIVACAINE HCL PF 0.5% 30 ML VIAL ONE (14:58)
[2017-03-02] MEDS ORDERED: NEOMYCIN/POLYMYXIN 1 ML G.U. IRRIGANT ONE (15:01)
[2017-03-02] MEDS ORDERED: NEOMYCIN/POLYMYXIN 1 ML G.U. IRRIGANT IRRIGATION ONE (15:52)
[2017-03-02] MEDS: ENOXAPARIN SODIUM 40 MG/0.4 ML SYRINGE SQ SCH (16:00)
--- NOTE | 2017-03-02 16:16 | PD.OP ---
Operative Report Preoperative Diagnosis: (1) Abscess of left forearm (2) compartment syndrome left forearm Postoperative Diagnosis: (1) Abscess of left forearm (2) compartment syndrome left forearm Procedure: exploration, wash, debridement and closure of forearm fasciotomy wound left Anesthesia: general Surgeon: Remy Gaming Soldering Technician(s): alex Operation and Findings: no purulence minimal necrotic/devitalized tissue 1x2 cm wound remaining Remy Gaming MD Mar 02, 2017 16:16
[2017-03-02] MEDS ORDERED: DO NOT ADM ANY ANTICOAGULANT DRUGS PRN (16:21)
--- NOTE | 2017-03-02 18:48 | HHI.IDPN ---
Note Infectious Disease Note Patient notes pain in the left arm. S/P repeated debridement by hand surgeon for compartment syndrome. Wound culture MRSA. Afebrile. PAST MEDICAL HISTORY 1. HIV disease 2. Hepatitis C 3. Hypertension 4. Gastroesophageal reflux 5. Anemia 6. Arthritis 7. Anxiety 8. Depression 9. Cholecystectomy 10. Bilateral hip replacement surgery 11. Tubal ligation. 12. History of crack cocaine and cocaine abuse. ALLERGIES NO KNOWN DRUG ALLERGIES. ANTIBIOTICS Vancomycin, BACTRIM Current Medications Medications (Trade) Dose Ordered Sig/Jessica Route PRN Reason Start Time Stop Time Status Last Admin Dose Admin Trimethoprim/ Sulfamethoxazole (Bactrim Ds 800-160 Mg) 1 tab Q12HR PO 02/26/17 11:45 03/08/17 11:44 03/02/17 09:36 Acetaminophen (Tylenol) 500 mg Q4H PRN PO HEADACHE 02/26/17 12:15 Sodium Chloride 1,000 ml @ 75 mls/hr [id number] IV 02/26/17 14:00 03/02/17 05:22 Sodium Chloride (NS Flush) 2 ml UNSCH PRN IV FLUSH FLUSH AFTER USING IV ACCESS 02/26/17 13:45 Sodium Chloride (NS Flush) 2 ml BID IV FLUSH 02/26/17 21:00 03/01/17 21:11 Acetaminophen (Tylenol) 650 mg Q4H PRN PO TEMP > 100.4 02/26/17 13:45 Ondansetron HCl (Zofran Inj) 4 mg Q6H PRN IVP NAUSEA OR VOMITING 02/26/17 13:45 Naloxone HCl (Narcan Inj) 0.4 mg UNSCH PRN IV PUSH SEE LABEL COMMENTS 02/26/17 13:45 Magnesium Hydroxide (Milk Of Magnesia Liq) 30 ml Q12H PRN PO Mild constipation 02/26/17 13:45 Pharmacy Profile Note 0 ml @ 0 mls/hr UNSCH OTHER 02/26/17 13:45 Acetaminophen/ Hydrocodone Bitart ([place] 5-325 Mg) 1 tab Q4H PRN PO pain 1-7 02/26/17 14:00 02/27/17 16:39 Acetaminophen/ Hydrocodone Bitart ([place] 5-325 Mg) 2 tab Q4H PRN PO pain 8-10 02/26/17 14:00 03/02/17 17:37 Gabapentin (Neurontin) 600 mg TID PO 02/26/17 18:00 03/02/17 17:17 Verapamil HCl (Isoptin Sr) 180 mg DAILY PO 02/26/17 14:45 03/02/17 09:36 Lisinopril (Prinivil) 40 mg DAILY PO 02/26/17 14:45 03/02/17 09:35 Multivitamins (Theragran) 1 tab DAILY PO 02/26/17 14:45 03/02/17 09:35 Ketorolac Tromethamine (Toradol Inj) 15 mg Q6HR IV PUSH 02/26/17 18:00 03/03/17 17:59 03/02/17 17:17 Enoxaparin Sodium (Lovenox Inj) 40 mg Q24H SQ 02/26/17 16:00 02/28/17 17:00 Abacavir Sulfate (Ziagen) 600 mg DAILY PO 02/27/17 09:00 03/02/17 09:36 Lamivudine (Epivir) 300 mg DAILY PO 02/27/17 09:00 03/02/17 09:36 Povidone Iodine (Betadine 5% Antisepsis Kit) 1 applic LEAK DETECTOR PRN EACH NARE SEE LABEL COMMENTS 02/27/17 20:15 03/02/17 20:14 Lactated Ringer's 1,000 ml @ 30 mls/hr Q24H PRN IV SEE LABEL COMMENTS 02/28/17 00:30 03/03/17 00:29 Sodium Chloride 500 ml @ 30 mls/hr [id number] PRN IV SEE LABEL COMMENTS 02/28/17 00:30 03/03/17 00:29 Metoprolol Tartrate (Lopressor) 25 mg LEAK DETECTOR PRN PO SEE LABEL COMMENTS 02/28/17 00:30 03/03/17 00:29 Povidone Iodine (Betadine 5% Antisepsis Kit) 1 applic LEAK DETECTOR PRN EACH NARE SEE LABEL COMMENTS 02/28/17 00:30 03/03/17 00:29 Chlorhexidine Gluconate (Chlorhexidine 2% Cloth) 3 pack LEAK DETECTOR PRN TOPICAL SEE LABEL COMMENTS 02/28/17 00:30 03/03/17 00:29 Insulin Human Regular (NovoLIN R INJ) See Protocol Table ... LEAK DETECTOR PRN SQ SEE PROTOCOL TABLE 02/28/17 00:30 03/03/17 00:29 Vancomycin HCl 750 mg/Sodium Chloride 257.5 ml @ 250 mls/hr Q12H IV 03/01/17 02:00 03/02/17 17:17 Miscellaneous Information ALL NURSING DEPARTME... UNSCH PRN .XX SEE LABEL COMMENTS 03/02/17 16:21 03/03/17 16:20 OBJECTIVE: Vital Signs Date Time Temp Pulse Resp B/P (MAP) Pulse Ox O2 Delivery O2 Flow Rate FiO2 03/02/17 16:54 97.5 56 16 130/70 (90) 100 Nasal Cannula 2 03/02/17 16:45 55 13 126/71 (89) 100 Nasal Cannula 2 03/02/17 16:30 59 15 124/64 (84) 100 Nasal Cannula 2 03/02/17 16:21 97.3 58 14 112/63 (79) 98 Nasal Cannula 2 03/02/17 14:32 Nasal Cannula 2.00 03/02/17 12:00 96.4 56 20 135/68 (90) 99 03/02/17 09:35 62 03/02/17 08:00 97.3 57 19 147/70 (95) 99 03/02/17 04:00 98.2 62 20 151/71 (97) 97 03/02/17 00:00 97.9 70 20 138/63 (88) 98 03/01/17 20:00 97.7 74 20 126/61 (82) 97 Laboratory Tests Test 03/02/17 06:50 White Blood Count 12.9 TH/MM3 Red Blood Count 3.94 MIL/MM3 Hemoglobin 10.9 GM/DL Hematocrit 33.1 % Mean Corpuscular Volume 83.8 FL Mean Corpuscular Hemoglobin 27.7 PG Mean Corpuscular Hemoglobin Concent 33.1 % Red Cell Distribution Width 14.5 % Platelet Count 211 TH/MM3 Mean Platelet Volume 9.8 FL Neutrophils (%) (Auto) 83.9 % Lymphocytes (%) (Auto) 8.9 % Monocytes (%) (Auto) 4.9 % Eosinophils (%) (Auto) 1.7 % Basophils (%) (Auto) 0.6 % Neutrophils # (Auto) 10.8 TH/MM3 Lymphocytes # (Auto) 1.1 TH/MM3 Monocytes # (Auto) 0.6 TH/MM3 Eosinophils # (Auto) 0.2 TH/MM3 Basophils # (Auto) 0.1 TH/MM3 CBC Comment DIFF FINAL Differential Comment Microbiology Date/Time Source Procedure Growth Status 02/27/17 21:36 Wound Arm Fungal Smear - Final NO FUNGAL ELEMENTS SEEN. Resulted 02/27/17 21:36 Wound Arm Fungal Culture Pending Resulted 02/27/17 21:36 Wound Arm Acid Fast Stain - Final NO ACID FAST BACILLI SEEN Resulted 02/27/17 21:36 Wound Arm Mycobacterial Culture Pending Resulted 02/27/17 21:36 Wound Arm Gram Stain - Final Complete 12 21:36 Wound Culture - Final S. Aureus Mrsa Complete PHYSICAL EXAMINATION: GENERAL: no acute distress. HEAD, EYES, EARS, NOSE, AND THROAT: Head atraumatic. Pupils reactive to light. No icterus. Oropharynx moist mucosa. No lesions. No thrush. NECK: Supple. No adenopathy. LUNGS: Clear to auscultation. HEART: Regular S1, S2, no audible murmurs, rubs or gallops. ABDOMEN: Bowel sounds present, soft, nontender. EXTREMITIES: No clubbing, cyanosis or edema. The left upper extremity is post debridement. dressing in place. SKIN: no diffuse rash. NEUROLOGIC: Nonfocal PSYCHIATRIC: Calm and cooperative. IMPRESSION Abscess/ compartment syndrome of the left forearm with cellulitis. MRSA. HIV disease, stable on medication. RECOMMENDATIONS 1. Continue vancomycin. 2. Dressing changes per hand surgeon. Ortega Smith MD Mar 02, 2017 18:48
[2017-03-02 20:00] VITALS: BP_SYST 113; BP_SYST 142; BP_DIAS 65; BP_DIAS 68; PULSE 62; PULSE 66; PULSE 91; RESP 18; TEMP 97.5; O2SAT 96; O2SAT 97
--- NOTE | 2017-03-02 22:15 | MP ---
cc: MORGAN ZAPATA MD DATE OF SURGERY 03/02/2017 PREOPERATIVE DIAGNOSIS Abscess left forearm status post fasciotomy left forearm. POSTOPERATIVE DIAGNOSIS Fasciotomy wound left forearm. PROCEDURE Exploration, wash, excisional debridement and closure of fasciotomy wound left forearm. SURGEON Dr. Zapata. ANESTHESIA General. ESTIMATED BLOOD LOSS Minimal. TOURNIQUET TIME No tourniquet was used. DISPOSITION To PACU stable. INDICATION The patient is a 61-year-old female with history of forearm abscess on the left side. She underwent incision and drainage and forearm fasciotomy several days ago. She was brought in multiple times for repeat debridements and wash out. The patient was brought in today for exploration, wash, debridement and possible closure. She was explained the risks and benefits of the procedure. DETAILS OF PROCEDURE The patient was brought to the operating room. Under general anesthesia the left upper extremity was thoroughly prepped and draped. Previously placed nsia and vessel loops were removed. On exploration there was no evidence of purulent material. Minimal necrotic tissue and devitalized tissue noted over the fascia and subcutaneous region which was debrided. The skin edges were debrided. Thorough wash was given using normal saline mixed with irrigant. The wound was then approximated using nisa about 1 x 2 cm of wound was still open which was left for drainage. Xeroform bacitracin dressing applied. Bulky hand dressing was applied which was held in place by Sof-Rol and bias hand wrap. The patient had good distal circulation at the end of the procedure. The patient was recovered sent to recovery in stable condition. The plan will be to change the dressing tomorrow for possible discharge on antibiotics based on ID recommendation. Morgan Zapata MD SE/KARELY /4:17 PM /10:01 PM
[2017-03-03] VITALS (9 sets, daily range): BP systolic 108–135; BP diastolic 58–73; PULSE 54–67; RESP 16–18; TEMP 97–98.7; O2SAT 96–100
[2017-03-03] MEDS: VANCOMYCIN INJ 750 MG in SODIUM CHLOR 0.9% 250 ML INJ 250 ML IV SCH ×2 (01:34→13:34)
[2017-03-03] MEDS: ACETAMINOPHEN/HYDROcodone 325 MG/5 MG TAB PO PRN ×4 (04:26→19:41)
[2017-03-03] MEDS: KETOROLAC TROMETHAMINE 30 MG/ML (IVP) VIAL IV PUSH SCH ×2 (06:18→13:35)
[2017-03-03 07:08] LABS: AUTOMATED NEUTROPHIL # 6.9 TH/MM3 (1.8-7.7); BASOPHIL % 0.4 % (0.0-2.0); EOSINOPHIL # 0.6 TH/MM3 (0-0.4); EOSINOPHIL % 5.8 % (0.0-4.0); HEMO FLAGS DIFF FINAL; LYMPHOCYTE # 2.3 TH/MM3 (1.0-4.8); MEAN CELL VOLUME 83.2 FL (80.0-100.0); MEAN CORPUSCULAR HEMOGLOBIN 27.8 PG (27.0-34.0); MEAN CORPUSCULAR HGB CONC 33.5 % (32.0-36.0); MONO % 7.7 % (0.0-8.0); NEUT % 64.1 % (16.0-70.0); PLATELET COUNT 237 TH/MM3 (150-450); RED BLOOD COUNT 3.97 MIL/MM3 (4.00-5.30); WHITE BLOOD COUNT 10.7 TH/MM3 (4.0-11.0)
[2017-03-03] MEDS: MULTIVITAMIN TAB PO SCH (08:38)
[2017-03-03] MEDS: SULFAMETHOXAZOLE-TRIMETHOPRIM DS 800-160 MG TAB PO SCH ×2 (08:38→19:40)
[2017-03-03] MEDS: GABAPENTIN 300 MG CAP PO SCH ×3 (08:38→19:22)
[2017-03-03] MEDS: VERAPAMIL HCL 180 MG SUSTAINED RELEASE TAB PO SCH (08:38)
[2017-03-03] MEDS: DOLUTEGRAVIR SODIUM 50 MG TAB PO SCH (08:38)
[2017-03-03] MEDS: LISINOPRIL 20 MG TAB PO SCH (08:39)
[2017-03-03] MEDS: ABACAVIR SULFATE 300 MG TAB PO SCH (08:39)
[2017-03-03] MEDS: SODIUM CHLORIDE 0.9% FLUSH 10 ML FLUSH IV FLUSH SCH ×2 (08:43→19:42)
--- NOTE | 2017-03-03 12:20 | HHI.IDPN ---
Note Infectious Disease Note Patient feels okay. S/P repeated debridement by hand surgeon for compartment syndrome. Afebrile. PAST MEDICAL HISTORY 1. HIV disease 2. Hepatitis C 3. Hypertension 4. Gastroesophageal reflux 5. Anemia 6. Arthritis 7. Anxiety 8. Depression 9. Cholecystectomy 10. Bilateral hip replacement surgery 11. Tubal ligation. 12. History of crack cocaine and cocaine abuse. ALLERGIES NO KNOWN DRUG ALLERGIES. ANTIBIOTICS Vancomycin, BACTRIM OBJECTIVE: Vital Signs Date Time Temp Pulse Resp B/P (MAP) Pulse Ox O2 Delivery O2 Flow Rate FiO2 03/03/17 08:00 97.4 54 18 135/71 (92) 97 03/03/17 08:00 96 Nasal Cannula 2.00 21 03/03/17 08:00 60 03/03/17 04:00 60 03/03/17 04:00 97.9 67 18 116/60 (78) 100 03/03/17 00:00 98.7 60 18 126/58 (80) 100 03/03/17 00:00 59 03/02/17 23:25 Nasal Cannula 2.00 03/02/17 20:00 97.5 66 18 142/65 (90) 97 03/02/17 20:00 62 03/02/17 16:54 97.5 56 16 130/70 (90) 100 Nasal Cannula 2 03/02/17 16:45 55 13 126/71 (89) 100 Nasal Cannula 2 03/02/17 16:40 Nasal Cannula 2.00 03/02/17 16:30 59 15 124/64 (84) 100 Nasal Cannula 2 03/02/17 16:21 97.3 58 14 112/63 (79) 98 Nasal Cannula 2 03/02/17 14:32 Nasal Cannula 2.00 Laboratory Tests Test 03/02/17 06:50 03/03/17 05:11 White Blood Count 12.9 TH/MM3 10.7 TH/MM3 Red Blood Count 3.94 MIL/MM3 3.97 MIL/MM3 Hemoglobin 10.9 GM/DL 11.0 GM/DL Hematocrit 33.1 % 33.0 % Mean Corpuscular Volume 83.8 FL 83.2 FL Mean Corpuscular Hemoglobin 27.7 PG 27.8 PG Mean Corpuscular Hemoglobin Concent 33.1 % 33.5 % Red Cell Distribution Width 14.5 % 14.0 % Platelet Count 211 TH/MM3 237 TH/MM3 Mean Platelet Volume 9.8 FL 9.3 FL Neutrophils (%) (Auto) 83.9 % 64.1 % Lymphocytes (%) (Auto) 8.9 % 22.0 % Monocytes (%) (Auto) 4.9 % 7.7 % Eosinophils (%) (Auto) 1.7 % 5.8 % Basophils (%) (Auto) 0.6 % 0.4 % Neutrophils # (Auto) 10.8 TH/MM3 6.9 TH/MM3 Lymphocytes # (Auto) 1.1 TH/MM3 2.3 TH/MM3 Monocytes # (Auto) 0.6 TH/MM3 0.8 TH/MM3 Eosinophils # (Auto) 0.2 TH/MM3 0.6 TH/MM3 Basophils # (Auto) 0.1 TH/MM3 0.0 TH/MM3 CBC Comment DIFF FINAL DIFF FINAL Differential Comment Microbiology Date/Time Source Procedure Growth Status 02/27/17 21:36 Wound Arm Fungal Smear - Final NO FUNGAL ELEMENTS SEEN. Resulted 02/27/17 21:36 Wound Arm Fungal Culture Pending Resulted 02/27/17 21:36 Wound Arm Acid Fast Stain - Final NO ACID FAST BACILLI SEEN Resulted 02/27/17 21:36 Wound Arm Mycobacterial Culture Pending Resulted 02/27/17 21:36 Wound Arm Gram Stain - Final Complete 02/27/17 21:36 Wound Culture - Final S. Aureus Mrsa Complete PHYSICAL EXAMINATION: GENERAL: no acute distress. HEAD, EYES, EARS, NOSE, AND THROAT: Head atraumatic. Pupils reactive to light. No icterus. Oropharynx moist mucosa. No lesions. No thrush. NECK: Supple. No adenopathy. LUNGS: Clear to auscultation. HEART: Regular S1, S2, no audible murmurs, rubs or gallops. ABDOMEN: Bowel sounds present, soft, nontender. EXTREMITIES: No clubbing, cyanosis or edema. The left upper extremity is post debridement. dressing in place. SKIN: no diffuse rash. NEUROLOGIC: Nonfocal PSYCHIATRIC: Calm and cooperative. IMPRESSION Abscess/ compartment syndrome of the left forearm with cellulitis. MRSA. HIV disease, stable on medication. RECOMMENDATIONS Stop vancomycin. Change antibiotic to PO Doxycycline 100mg PO BID x 2 weeks. Continue the Bactrim 1 DS BID x 2 weeks. Can be discharged when cleared by hand surgeon. Ortega Smith MD Mar 03, 2017 12:20
[2017-03-03] MEDS: ENOXAPARIN SODIUM 40 MG/0.4 ML SYRINGE SQ SCH (16:00)
[2017-03-03] MEDS ORDERED: DOXY100C PO (18:12)
[2017-03-03] MEDS ORDERED: SULF1TAB23 PO (18:12)
--- NOTE | 2017-03-03 18:33 | HHI.PR ---
Subjective Remarks Patient seen this morning around 10 AM. Said she is feeling all right. Reports pain is controlled. Objective Vital Signs Date Time Temp Pulse Resp B/P (MAP) Pulse Ox O2 Delivery O2 Flow Rate FiO2 03/03/17 16:00 97.0 62 18 110/60 (77) 97 03/03/17 12:00 97.5 64 18 108/59 (75) 98 03/03/17 08:00 97.4 54 18 135/71 (92) 97 03/03/17 08:00 96 Nasal Cannula 2.00 21 03/03/17 08:00 60 03/03/17 04:00 60 03/03/17 04:00 97.9 67 18 116/60 (78) 100 03/03/17 00:00 98.7 60 18 126/58 (80) 100 03/03/17 00:00 59 03/02/17 23:25 Nasal Cannula 2.00 03/02/17 20:00 97.5 66 18 142/65 (90) 97 03/02/17 20:00 62 I/O 03/02/17 03/02/17 03/02/17 03/03/17 03/03/17 03/03/17 07:00 15:00 23:00 07:00 15:00 23:00 Intake Total 400 ml 1082 ml 757.5 ml Output Total 800 ml 5 ml 800 ml Balance -800 ml 395 ml 282 ml 757.5 ml IV Total 0 ml 1082 ml 757.5 ml Other 400 ml Output Urine Total 800 ml 800 ml Estimated Blood Loss 5 ml # Bowel Movements 0 Result Diagram: 03/03/17 0511 02/28/17 0600 Objective Remarks GENERAL: Patient sitting up in bed. Appears comfortable.left arm still dressed and elevated.again unchanged from yesterday. SKIN: Warm and dry. HEAD: Normocephalic. EYES: No scleral icterus. No injection or drainage. NECK: Supple, trachea midline. No JVD CARDIOVASCULAR: Regular rate and rhythm without murmurs, gallops, or rubs. RESPIRATORY: Breath sounds equal bilaterally. No accessory muscle use. GASTROINTESTINAL: Abdomen soft, non-tender, nondistended. MUSCULOSKELETAL: No cyanosis, or edema. Arm elevated, dressing intact.. BACK: Nontender without obvious deformity. No CVA tenderness. A/P Assessment and Plan 03/03 -Discussed with infectious disease. Patient to go home a 2 week course of Bactrim and doxycycline. Called by nurse around 6 PM to inform me that hand surgery had cleared patient for discharge. Awaiting callback from hand surgery regarding pain medication. //Sepsis ICD Code: A41.9 - Sepsis, unspecified organism Status: Acute Plan: Present on admission. Patient with leukocytosis and respiratory rate of 25. Fever with a MAXIMUM TEMPERATURE of 100.3. Started on IV vancomycin. Continue. Cultures negative to date Wound culture growing MRSA Appreciate ID recommendations Consult hand surgery for I&D. Continue IV fluids. = 02/28. Still with leukocytosis 12. Repeat and surgery today. MRSA on cultures. Appreciate assistance. Continue antibiotics. //Cellulitis of left arm //MRSA cellulitis. ICD Code: L03.114 - Cellulitis of left upper limb = Hand surgery following. Appreciate assistance. // Chest pain ICD Code: R07.9 - Chest pain, unspecified Status: Resolved Plan: As per documentation purposes above. Chest pain resolved now. Troponin negative 3. EKG reviewed by me shows sinus rhythm with first-degree AV block. = 02/28. Chest pain resolved. Possibly secondary to cocaine. Patient counseled on cessation. //Cocaine abuse. Positive on urinalysis. Patient counseled on cessation. //Hepatitis C ICD Code: B19.20 - Unspecified viral hepatitis C without hepatic coma Status: Chronic = Follow-up with primary care as outpatient. // HIV (human immunodeficiency virus infection) ICD Code: Z21 - Asymptomatic human immunodeficiency virus [HIV] infection status Status: Acute - currently on abacavir and lamivudine. Continue Bactrim. CD4 count still pending. // Hypotensionappears resolved. ICD Code: I95.9 - Hypotension, unspecified Plan: Hypotension secondary to sepsis secondary to cellulitis and abscess of the left forearm. Ordered 2 L of IV normal saline IV bolus. Continue to monitor vital signs. = Appears resolved after IV fluids. Continue to monitor. Assessment and Plan DVT prophylaxis: Continue SCDs, Lovenox subcutaneously. Discharge Planning Repeat hand surgery again today 03/02. Pending hand surgery clearance. hand surgery as indicated tentatively might be able to discharge on 03/03 Discharge Planning cleared by hand surgery for DC. Avtar De Souza MD Mar 03, 2017 18:33
[2017-03-03] MEDS: SODIUM CHLOR 0.45% 1000 ML INJ 1,000 ML IV SCH (19:44)
[2017-03-04] MEDS: VANCOMYCIN INJ 750 MG in SODIUM CHLOR 0.9% 250 ML INJ 250 ML IV SCH (02:45)
[2017-03-04 03:50] VITALS: BP 167/75; PULSE 78; RESP 16; TEMP 99.2; O2SAT 96
[2017-03-04 03:56] VITALS: PULSE 79
[2017-03-04 07:46] VITALS: PULSE 77
[2017-03-04 08:00] VITALS: BP 157/76; PULSE 81; RESP 17; TEMP 98.7; O2SAT 98
[2017-03-04] MEDS: SODIUM CHLORIDE 0.9% FLUSH 10 ML FLUSH IV FLUSH SCH (09:00)
[2017-03-04] MEDS: ABACAVIR SULFATE 300 MG TAB PO SCH (09:42)
[2017-03-04] MEDS: GABAPENTIN 300 MG CAP PO SCH (09:42)
[2017-03-04] MEDS: LISINOPRIL 20 MG TAB PO SCH (09:43)
[2017-03-04] MEDS: VERAPAMIL HCL 180 MG SUSTAINED RELEASE TAB PO SCH (09:43)
[2017-03-04] MEDS: MULTIVITAMIN TAB PO SCH (09:43)
[2017-03-04] MEDS: DOLUTEGRAVIR SODIUM 50 MG TAB PO SCH (09:44)
[2017-03-04] MEDS: SULFAMETHOXAZOLE-TRIMETHOPRIM DS 800-160 MG TAB PO SCH (09:45)
[2017-03-04] MEDS ORDERED: HYDR-3366 PO (10:32)
[2017-03-04 12:01] VITALS: BP 142/75; PULSE 80; RESP 16; TEMP 98.6; O2SAT 98
== END 2017-03-04 12:18 | disposition home or self-care (01) | DRG 969 ==
LOC: NEPD 08:57 → NEDA 11:45 → INTOOBSV 13:42 → OBSVTOIN 13:42 → N04B 14:36
PROVIDERS: ADMIT Family Medicine; ATTEND Family Medicine
PROC: 0H9EXZZ Drainage of Left Lower Arm Skin, External Approach (ICD-10-PCS; 2017-02-26)
PROC: 0KNB0ZZ Release Left Lower Arm and Wrist Muscle, Open Approach (ICD-10-PCS; 2017-02-27)
PROC: 0JBH0ZZ Excision of Left Lower Arm Subcutaneous Tissue and Fascia, Open Approach (ICD-10-PCS; principal; 2017-02-27 20:42)
PROC: 0JBH0ZZ Excision of Left Lower Arm Subcutaneous Tissue and Fascia, Open Approach (ICD-10-PCS; 2017-02-28)
PROC: 0JBH0ZZ Excision of Left Lower Arm Subcutaneous Tissue and Fascia, Open Approach (ICD-10-PCS; 2017-03-01)
PROC: 0J9H0ZZ Drainage of Left Lower Arm Subcutaneous Tissue and Fascia, Open Approach (ICD-10-PCS; 2017-03-02)
PROC: 0JBH0ZZ Excision of Left Lower Arm Subcutaneous Tissue and Fascia, Open Approach (ICD-10-PCS; 2017-03-02)
DX: A41.02 Sepsis due to Methicillin resistant Staphylococcus aureus (principal); B20 Human immunodeficiency virus [HIV] disease; I95.9 Hypotension, unspecified; M79.A12 Nontraumatic compartment syndrome of left upper extremity; K74.60 Unspecified cirrhosis of liver; D64.9 Anemia, unspecified; L02.414 Cutaneous abscess of left upper limb; L03.114 Cellulitis of left upper limb; I10 Essential (primary) hypertension; R07.9 Chest pain, unspecified; B19.20 Unspecified viral hepatitis C without hepatic coma; K21.9 Gastro-esophageal reflux disease without esophagitis; T63.301A Toxic effect of unspecified spider venom, accidental (unintentional), initial encounter; I44.0 Atrioventricular block, first degree; M19.90 Unspecified osteoarthritis, unspecified site; F41.9 Anxiety disorder, unspecified; F14.10 Cocaine abuse, uncomplicated; F32.9 Major depressive disorder, single episode, unspecified; I25.10 Atherosclerotic heart disease of native coronary artery without angina pectoris; Z72.0 Tobacco use; Z96.643 Presence of artificial hip joint, bilateral
CPT/HCPCS: 10060; 71010; 73090; 76882; 80048; 80053; 80202; 80307; 82550; 82552; 82565; 82948; 83605; 83735; 84100; 84484; 85025; 85027; 85610; 85730; 86140; 86355; 86357; 86359; 86360; 86403; 87015; 87040; 87070; 87102; 87116; 87147; 87186; 87205; 87206; 90471; 90714; 93005; J0690; J1650; J1885; J2270; J3370; J7050